=== PATIENT | male | born 1965 | race Caucasian/White ===

== ENCOUNTER → 2017-07-07 | Outpatient (CLI) | payer BC ==
--- NOTE | 2017-07-07 17:10 | XR ---
EXAMINATION TYPE: XR knee complete RT DATE OF EXAM: 07/07/2017 COMPARISON: NONE HISTORY: Knee pain TECHNIQUE: Fell 2 months ago FINDINGS: 3 views were obtained and show no fracture nor dislocation. Joint spaces are normal. There is no sign of knee joint effusion. IMPRESSION: Negative right knee exam
== END | disposition home or self-care (01) ==
LOC: RADXRYALE 16:26
PROVIDERS: ATTEND Physician Assistant Medical
DX: M25.561 Pain in right knee (principal)

== ENCOUNTER 2017-07-18 09:49 | Emergency (ER) | payer BC ==
[2017-07-18 09:57] VITALS: BP 139/89; PULSE 62; RESP 18; TEMP 97.8
[2017-07-18] MEDS ORDERED: KETOROLAC 30 MG/ML 1 ML VIAL IM STA (10:13)
--- NOTE | 2017-07-18 10:18 | ED ---
Lower Extremity Injury HPI - General Chief Complaint: Extremity Injury, Lower Stated Complaint: Right Knee Time Seen by Provider: 07/18/17 09:59 Source: patient, RN notes reviewed, old records reviewed Mode of arrival: wheelchair Limitations: no limitations - History of Present Illness Initial Comments: 31-year-old male chief complaint of right knee pain for the past 2 months. Patient reports that he fell on his knee 2 months ago and since then has been having some pain within the medial aspect of the knee on the side. Patient reports that he has difficult time fully extending it. He reports the pain has been getting progressively worse. He size primary care provider admitted actually for a week ago. He reports that those were reviewed to be normal. He states that overtime work it seems to be increasingly painful. Denies any numbness or tingling down the leg, denies any severe swelling over the leg as well. Denies any recent fever or chills. - Related Data Home Medications Medication Instructions Recorded Confirmed Citalopram Hydrobromide [CeleXA] 20 mg PO DAILY 05/02/14 05/02/14 Hydrocodone/Acetaminophen [Tangier 1 each PO Q6H PRN 05/02/14 05/02/14 10-325] Metoprolol Tartrate [Lopressor] 50 mg PO DAILY 05/02/14 05/02/14 Orphenadrine [Norflex] 100 mg PO Q12H 05/02/14 05/02/14 Pravastatin Sodium [Pravachol] 40 mg PO DAILY 05/02/14 05/02/14 amLODIPine BESYLATE [Norvasc] 5 mg PO DAILY 05/02/14 05/02/14 clonazePAM [KlonoPIN] 0.5 mg PO BID 05/02/14 05/02/14 Previous Rx's Medication Instructions Recorded Meloxicam 7.5 mg PO DAILY #15 tablet 07/18/17 Allergies Allergy/AdvReac Type Severity Reaction Status Date / Time carisoprodol [From Soma] Allergy Unknown Verified 05/02/14 11:41 Review of Systems ROS Statement: Those systems with pertinent positive or pertinent negative responses have been documented in the HPI. ROS Other: All systems not noted in ROS Statement are negative. Past Medical History Past Medical History: Hyperlipidemia, Hypertension Additional Past Medical History / Comment(s): BROKEN HEART SYNDROME History of Any Multi-Drug Resistant Organisms: None Reported Additional Past Surgical History / Comment(s): SHOULDER SURGERY PILONIDAL CYST REMOVAL Past Psychological History: No Psychological Hx Reported Smoking Status: Never smoker Past Alcohol Use History: None Reported Past Drug Use History: None Reported General Exam - General Exam Comments Initial Comments: This is a 51-year-old male. No acute distress. Limitations: no limitations General appearance: alert, in no apparent distress Head exam: Present: atraumatic, normocephalic, normal inspection Eye exam: Present: normal appearance, PERRL, EOMI. Absent: scleral icterus, conjunctival injection, periorbital swelling ENT exam: Present: normal exam, mucous membranes moist Neck exam: Present: normal inspection. Absent: tenderness, meningismus, lymphadenopathy Respiratory exam: Present: normal lung sounds bilaterally. Absent: respiratory distress, wheezes, rales, rhonchi, stridor Cardiovascular Exam: Present: regular rate, normal rhythm, normal heart sounds. Absent: systolic murmur, diastolic murmur, rubs, gallop, clicks GI/Abdominal exam: Present: soft, normal bowel sounds. Absent: distended, tenderness, guarding, rebound, rigid Right Knee exam: Present: normal inspection, full ROM, tenderness (Patient has some tenderness to palpation over the medial meniscus.), pain/laxity with valgus ( is some pain and laxity with valgus strain.). Absent: ecchymosis, deformity, crepitus, dislocation, erythema, effusion Lower Leg exam: Present: normal inspection, full ROM Ankle exam: Present: normal inspection, full ROM Foot/Toe exam: Present: normal inspection, full ROM Neurovascular tendon exam: Present: no vascular compromise Gait: observed and normal Back exam: Present: normal inspection Neurological exam: Present: alert, oriented X3, CN II-XII intact Psychiatric exam: Present: normal affect, normal mood Skin exam: Present: warm, dry, intact, normal color. Absent: rash Course Vital Signs 07/18/17 09:54 Temperature 97.8 F Pulse Rate 62 Respiratory 18 Rate Blood Pressure 139/89 O2 Sat by Pulse 98 Oximetry Medical Decision Making - Medical Decision Making 51-year-old male chief complaint of chronic right knee pain for the past 2 months. He reports it started after a fall. He recently had x-rays by his primary which were negative. He is able to bear weight on it but comes progressively painful. Patient denies any recent fever or chills. Patient is somewhat tender to palpation over the medial collateral ligament, medial meniscus. Patient does have some laxity with valgus strain. Discussed that he is able to barely not concerned for any fracture, he did have x-rays a week ago. Patient agrees. Patient is surgically for a shot for pain. Patient is given IM Toradol, discussed that I will write the patient for meloxicam and given an Bhupinder wrap. Discussed that needs to follow-up with his quality assurance specialist for further imaging studies such as an MRI. Patient agrees to plan will comply. Advised to rest, ice and elevate extremity. Return parameters were discussed. Disposition Clinical Impression: Injury of meniscus of right knee, Knee MCL sprain Disposition: HOME SELF-CARE Condition: Good Instructions: Meniscus Tear (ED) Additional Instructions: Rest rest, ice, and elevate extremity. Follow-up with orthopedic physician. Take the anti-inflammatory medicine anterior prescribed pain medicine as directed. Patient needs to wear a compression wrap around the knee. Return to the emergency department if any alarming signs or symptoms occur. Prescriptions: Meloxicam 7.5 mg PO DAILY #15 tablet Referrals: Mario Wallace DO [Primary Care Provider] - 1-2 days Mario Hummel DO [Doctor of Osteopathic Medicine] - 1-2 days Time of Disposition: 10:18
== END 2017-07-18 10:32 | disposition home or self-care (01) ==
LOC: EC 09:49
DX: S83.411A Sprain of medial collateral ligament of right knee, initial encounter (principal); E78.5 Hyperlipidemia, unspecified; I10 Essential (primary) hypertension; Z79.899 Other long term (current) drug therapy; Z88.8 Allergy status to other drugs, medicaments and biological substances; W19.XXXD Unspecified fall, subsequent encounter
CPT/HCPCS: 99283; 96372; J1885

== ENCOUNTER → 2017-07-21 | Outpatient (CLI) | payer BC ==
--- NOTE | 2017-07-22 18:14 | ECHOF ---
Referral Reason:Edema R60.9, I10 Essential hypertension MEASUREMENTS -------- HEIGHT: 177.8 cm WEIGHT: 102.1 kg BP: 141/88 RVIDd: 4.0 cm (< 3.3) IVSd: 1.5 cm (0.6 - 1.1) LVIDd: 4.6 cm (3.9 - 5.3) LVPWd: 1.4 cm (0.6 - 1.1) EDV(Teich): 98 ml IVSs: 1.5 cm LVIDs: 3.2 cm LVPWs: 1.5 cm %IVS Thck: 4 % ESV(Teich): 42 ml EF(Teich): 57 % %FS: 30 % SV(Teich): 56 ml LALs A4C: 5.2 cm LAAs A4C: 14.4 cm LAESV A-L A4C: 33 ml LAESV MOD A4C: 28 ml LALs A2C: 4.9 cm LAAs A2C: 15.2 cm LAESV A-L A2C: 40 ml LAESV MOD A2C: 38 ml LAESV(A-L): 38 ml LAESV Index (A-L): 17.07 ml/m Ao Diam: 3.1 cm (2.0 - 3.7) AV Cusp: 2.0 cm (1.5 - 2.6) LA Diam: 4.2 cm (2.7 - 3.8) MV EXCURSION: 19.913 mm (> 18.000) MV EF SLOPE: 129 mm/s (70 - 150) EPSS: 0.5 cm MV E Justin: 0.78 m/s MV DecT: 249 ms MV Dec Baker: 3.1 m/s MV A Justin: 0.79 m/s MV E/A Ratio: 0.98 MV PHT: 72 ms E/E': 10.94 E': 0.07 m/s AV Vmax: 1.43 m/s AV maxP.22 mmHg TR Vmax: 2.16 m/s TR maxP.74 mmHg RAP: 5.00 mmHg RVSP: 23.74 mmHg FINDINGS -------- Sinus rhythm. This was a technically adequate study. There is mild concentric left ventricular hypertrophy. Overall left ventricular systolic function is normal with, an EF between 55 - 60 %. The right ventricle is mildly enlarged. Normal LA size by volume 22+/-6 ml/m2. RA appears enlarged. The aortic valve is trileaflet, and appears structurally normal. No aortic stenosis or regurgitation. The mitral valve leaflets are mildly thickened. There is trace mitral regurgitation. Trace tricuspid regurgitation present. There is no evidence of pulmonary hypertension. The right ventricular systolic pressure, as measured by Doppler, is 23.74mmHg. The pulmonic valve is normal. The aortic root size is normal. Normal inferior vena cava with normal inspiratory collapse consistent with estimated right atrial pressure of 5 mmHg. The pericardium is normal. There is no pericardial effusion. CONCLUSIONS -------- 1. Sinus rhythm. 2. There is trace mitral regurgitation. 3. Trace tricuspid regurgitation present. 4. There is no evidence of pulmonary hypertension. 5. The right ventricular systolic pressure, as measured by Doppler, is 23.74mmHg. 6. The aortic root size is normal. 7. There is no pericardial effusion. 8. This was a technically adequate study. 9. There is mild concentric left ventricular hypertrophy. 10. Overall left ventricular systolic function is normal with, an EF between 55 - 60 %. 11. The right ventricle is mildly enlarged. 12. Normal LA size by volume 22+/-6 ml/m2. 13. RA appears enlarged. 14. The aortic valve is trileaflet, and appears structurally normal. No aortic stenosis or regurgitation. 15. The mitral valve leaflets are mildly thickened. WELL TESTER: Romeo Torres RDCS
== END | disposition home or self-care (01) ==
LOC: RADECHMAIN 16:35
PROVIDERS: ATTEND Family Medicine
DX: I08.1 Rheumatic disorders of both mitral and tricuspid valves (principal); I10 Essential (primary) hypertension
CPT/HCPCS: 93306

== ENCOUNTER → 2018-07-27 | Outpatient (CLI) | payer BC ==
--- NOTE | 2018-07-27 17:09 | XR ---
EXAMINATION TYPE: XR chest 2V DATE OF EXAM: 07/27/2018 COMPARISON: Prior chest 05/02/2014 HISTORY: Shortness of breath TECHNIQUE: Frontal and lateral views of the chest are obtained. FINDINGS: There is no focal air space opacity, pleural effusion, or pneumothorax seen. The cardiac silhouette size is within normal limits. Prominent lung volume may be indicative of underlying COPD. The osseous structures are intact. IMPRESSION: No acute cardiopulmonary process.
== END | disposition home or self-care (01) ==
LOC: RADXRYALE 15:38
PROVIDERS: ATTEND Family Medicine
DX: R06.02 Shortness of breath (principal)
CPT/HCPCS: 71046

== ENCOUNTER → 2018-10-04 | Outpatient (CLI) | payer BC ==
--- NOTE | 2018-10-04 22:28 | MR ---
EXAMINATION TYPE: MR knee LT wo con DATE OF EXAM: 10/04/2018 COMPARISON: None HISTORY: Left knee pain gotten worse over time TECHNIQUE: Multiplanar, multisequence imaging of the left knee is performed without IV contrast. FINDINGS: MEDIAL MENISCUS: Posterior horn of the medial meniscus shows linear increased signal extending to the articular surface LATERAL MENISCUS: There is some linear increased signal within the body of the meniscus, question jerzy e linear increased signal along the anterior horn extending toward the articular surface CRUCIATE LIGAMENTS: The anterior and posterior cruciate ligaments are intact and unremarkable. COLLATERAL LIGAMENTS: The medial collateral ligament and lateral collateral ligament complex are inta ct and unremarkable. EXTENSOR MECHANISM: Visualized quadriceps and patellar tendons are intact. EFFUSION: Suprapatellar joint effusion is present POPLITEAL CYST: No popliteal/jackson cyst. TRICOMPARTMENT SPACES: Reduced in the medial compartment CARTILAGE: Grade IV chondromalacia present in the medial compartment BONE MARROW SIGNAL: Subchondral marrow signal change present in the medial femoral condyle OTHER: Marginal spurring present in the medial compartment. Subcutaneous fat shows edema, there are some metallic susceptibility artifacts present anteriorly and medially. IMPRESSION: Osteoarthritis. Tear of the medial meniscus as described.
== END ==
LOC: RADMRIMAIN 17:46
PROVIDERS: ATTEND Physician Assistant Medical
DX: S83.242A Other tear of medial meniscus, current injury, left knee, initial encounter (principal); M17.12 Unilateral primary osteoarthritis, left knee

== ENCOUNTER 2019-06-14 06:09 | Inpatient (IN) | payer BC ==
[2019-06-14] MEDS ORDERED: ASPIRIN 81 MG PO STA (06:19)
[2019-06-14] MEDS ORDERED: NITROGLYCERIN SL TABS 0.4 MG TAB SUBLINGUAL STA (06:34)
--- NOTE | 2019-06-14 06:40 | ED ---
Chest Pain HPI - General Source: patient, RN notes reviewed Mode of arrival: ambulatory Limitations: no limitations <Mario Mo - Last Filed: 06/14/19 07:58> <Dinh Koroma - Last Filed: 06/14/19 08:07> - General Chief Complaint: Chest Pain Stated Complaint: Chest Pain Time Seen by Provider: 06/14/19 06:18 - History of Present Illness Initial Comments: 53-year-old male presents emergency Department with chief complaint of chest pain. Patient states the pain started shortly after he woke up this morning. P atient he normally wakes up around 2:30 AM to go to work. Patient states it's right-sided anterior chest pain that radiated into his left arm.. Patient states that the pain is still present he does not take a daily aspirin. He does have a history of hypertension hyperlipidemia. Patient states that he had broken heart syndrome years ago, cannot remember the year but states is over 5 years ago in which she had a heart cath in which that was clean at that time. He has had no recent stresses or recent heart cath otherwise. Patient states she does have a large amount of stressors currently. Patient states nothing really makes the pain feel better or worse he did have some shortness of breath and lightheadedness he denies being dizzy. Denies any abdominal pain, back pain and usual. He states his chronic back issues. (Mario Mo) - Related Data Home Medications Medication Instructions Recorded Confirmed amLODIPine BESYLATE [Norvasc] 5 mg PO DAILY 05/02/14 06/14/19 Metoprolol Succinate (ER) [Toprol 100 mg PO DAILY 06/14/19 06/14/19 Xl] Milk Thistle 150 mg PO DAILY 06/14/19 06/14/19 Morphine Sulfate [Ms Contin] 15 mg PO DAILY 06/14/19 06/14/19 Multivitamins, Thera [Multivitamin 1 tab PO DAILY 06/14/19 06/14/19 (formulary)] [place]-3 Fatty Acids/Fish Oil [Fish 1 cap PO DAILY 06/14/19 06/14/19 Oil 1,000 mg Softgel] Vitamin B (Unknow Otc) 1 tab PO DAILY 06/14/19 06/14/19 Allergies Allergy/AdvReac Type Severity Reaction Status Date / Time carisoprodol [From Soma] Allergy Unknown Verified 06/14/19 07:46 Review of Systems ROS Other: All systems not noted in ROS Statement are negative. <Mario Mo - Last Filed: 06/14/19 07:58> ROS Other: All systems not noted in ROS Statement are negative. <Dinh Koroma - Last Filed: 06/14/19 08:07> ROS Statement: Those systems with pertinent positive or pertinent negative responses have been documented in the HPI. EKG Findings - EKG Comments: EKG Findings:: EKG performed at 6:30 normal sinus rhythm right bundle rate of 72, AL 144 QRS 134 QT status QTC 4:30 04/26/[address] changes in V2 and V3 <Mario Mo - Last Filed: 06/14/19 07:58> Past Medical History Past Medical History: Hyperlipidemia, Hypertension Additional Past Medical History / Comment(s): BROKEN HEART SYNDROME, torn meniscus in left knee, History of Any Multi-Drug Resistant Organisms: None Reported Additional Past Surgical History / Comment(s): SHOULDER SURGERY, PILONIDAL CYST REMOVAL, nerve removed from left foot, Past Psychological History: No Psychological Hx Reported Smoking Status: Former smoker Past Alcohol Use History: Rare Past Drug Use History: None Reported <Mario Mo - Last Filed: 06/14/19 07:58> General Exam Limitations: no limitations General appearance: alert, in no apparent distress Head exam: Present: atraumatic, normocephalic, normal inspection Eye exam: Present: normal appearance, PERRL, EOMI. Absent: scleral icterus, conjunctival injection, periorbital swelling ENT exam: Present: normal exam, normal oropharynx, mucous membranes moist, TM's normal bilaterally Neck exam: Present: normal inspection, full ROM. Absent: tenderness, meningismus, lymphadenopathy Respiratory exam: Present: normal lung sounds bilaterally. Absent: respiratory distress, wheezes, rales, rhonchi, stridor Cardiovascular Exam: Present: regular rate, normal rhythm, normal heart sounds. Absent: systolic murmur, diastolic murmur, rubs, gallop, clicks GI/Abdominal exam: Present: soft, normal bowel sounds. Absent: distended, tenderness, guarding, rebound, rigid Neurological exam: Present: alert, oriented X3, CN II-XII intact Psychiatric exam: Present: anxious Skin exam: Present: warm, dry, intact, normal color. Absent: rash <Mario Mo - Last Filed: 06/14/19 07:58> Course <Dinh Koroma - Last Filed: 06/14/19 08:07> Vital Signs 06/14/19 06/14/19 06/14/19 06:13 07:14 07:40 Temperature 98.0 F Pulse Rate 75 60 70 Respiratory 17 18 Rate Blood Pressure 152/95 111/71 130/92 O2 Sat by Pulse 98 99 98 Oximetry - Reevaluation(s) Reevaluation #1: 06/14/19 08:07 PA supervision: I proceeded [id number] evaluation the patient did discuss findings with him I did also discuss the findings with Dr. acevedo patient will be admitted with cardiology consultation. (Dinh Koroma) Chest Pain MDM <Mario Mo - Last Filed: 06/14/19 07:58> - MDM 53-year-old male presents emergency Department chief complaint chest pain. Patient had initial relief with nitro. Patient does have a history of ta kotsubo. EKG shows evidence of right bundle, nonspecific changes. Patient did have some recurrence of pain. Patient will be admitted for an cardiology evaluation. (Mario Mo) Disposition <Mario Mo - Last Filed: 06/14/19 07:58> <Dinh Koroma - Last Filed: 06/14/19 08:07> Clinical Impression: Chest pain Disposition: ADMITTED IP TO THIS HOSP Condition: Fair Referrals: Mario Wallace DO [Primary Care Provider] - 1-2 days
[2019-06-14 06:56] LABS: Basophils % (A) 0 %; Eosinophils # (A) 0.1 k/uL (0-0.7); Eosinophils % (A) 2 %; HCT 44.3 % (39.0-53.0); HGB 14.8 gm/dL (13.0-17.5); Lymphocytes # (A) 1.9 k/uL (1.0-4.8); Lymphocytes % (A) 21 %; MCH 29.6 pg (25.0-35.0); MCHC 33.5 g/dL (31.0-37.0); MCV 88.3 fL (80.0-100.0); Mean Platelet Volume 6.3; Monocytes # (A) 0.5 k/uL (0-1.0); Monocytes % (A) 6 %; Neutrophils # (A) 6.1 k/uL (1.3-7.7); Neutrophils % (A) 69 %; Platelet Count 351 k/uL (150-450); RBC 5.01 m/uL (4.30-5.90); RDW 13.3 % (11.5-15.5); WBC 8.8 k/uL (3.8-10.6)
[2019-06-14 07:00] LABS: ALT 61 U/L (21-72); AST 26 U/L (17-59); African American GFR (CKD) >90 (>60 ml/min/1.73 sqM); Albumin 4.9 g/dL (3.5-5.0); Alkaline Phosphatase 75 U/L (38-126); Anion Gap 9 mmol/L; Blood Urea Nitrogen 12 mg/dL (9-20); Calcium 9.8 mg/dL (8.4-10.2); Carbon Dioxide 29 mmol/L (22-30); Chloride 100 mmol/L (98-107); Glucose 111 mg/dL (74-99); Magnesium 2.4 mg/dL (1.6-2.3); Potassium 4.5 mmol/L (3.5-5.1); Sodium 138 mmol/L (137-145); Total Bilirubin 0.7 mg/dL (0.2-1.3); Total Protein 7.8 g/dL (6.3-8.2)
[2019-06-14 07:10] LABS: INR 0.9 (<1.2); Partial Thromboplastin Time 23.4 sec (22.0-30.0); Prothrombin Time 9.8 sec (9.0-12.0)
--- NOTE | 2019-06-14 07:23 | XR ---
EXAM: XR Chest, 2 Views CLINICAL HISTORY: ITS.REASON XR Reason: Chest Pain TECHNIQUE: Frontal and lateral views of the chest. COMPARISON: 07/27/18 FINDINGS: Lungs: No focal consolidation. The pulmonary vasculature demonstrates no significant radiographic abnormality. Pleural space: No pleural effusion. No pneumothorax. Heart: Unremarkable. No cardiomegaly. Mediastinum: The mediastinal contours are unremarkable. The trachea is midline. Bones/joints: Unremarkable. IMPRESSION: No focal consolidation or acute cardiopulmonary process identified.
[2019-06-14] MEDS ORDERED: NITROGLYCERIN OINT 1 INCH/GM PACKET TOPICAL STA (07:47)
[2019-06-14] MEDS ORDERED: HEPARIN SODIUM,PORCINE 5,000 UNIT/ML 1 ML VIAL IV ONE (08:00)
[2019-06-14] MEDS ORDERED: HEPARIN SOD,PORK IN 0.45% NACL 25,000 UNIT in 0.45% NACL 1 250ML.BAG IV SCH (08:00)
--- NOTE | 2019-06-14 13:22 | ECHOF ---
Referral Reason:chest pain MEASUREMENTS -------- HEIGHT: 177.8 cm WEIGHT: 111.1 kg BP: 130/92 RVIDd: 4.2 cm (< 3.3) IVSd: 1.6 cm (0.6 - 1.1) LVIDd: 5.0 cm (3.9 - 5.3) LVPWd: 1.1 cm (0.6 - 1.1) IVSs: 2.0 cm LVIDs: 3.2 cm LVPWs: 1.7 cm LA Diam: 4.3 cm (2.7 - 3.8) Ao Diam: 3.8 cm (2.0 - 3.7) AV Cusp: 2.0 cm (1.5 - 2.6) LA Diam: 3.7 cm (2.7 - 3.8) MV EXCURSION: 18.069 mm (> 18.000) MV EF SLOPE: 86 mm/s (70 - 150) EPSS: 0.4 cm MV E Justin: 0.61 m/s MV DecT: 320 ms MV A Justin: 0.67 m/s MV E/A Ratio: 0.92 RAP: 5.00 mmHg RVSP: 23.57 mmHg FINDINGS -------- Sinus rhythm. This was a technically good study. LV size, wall thickness and systolic function are normal, with an EF greater than 55%. There is nor mal global left ventricular contractility. The right ventricle is normal in size and function. The left atrium is mildly dilated. The right atrium is normal in size. Interatrial and interventricular septum intact. The aortic valve is trileaflet, and appears structurally normal. No aortic stenosis or regurgitation. There is no evidence of aortic regurgitation. Normal appearing mitral valve. There is trace to mild mitral regurgitation. The tricuspid valve appears structurally normal. Trace tricuspid regurgitation present. There is no evidence of pulmonary hypertension. The right ventricular systolic pressure, as measured by Dopp ler, is 23.57mmHg. Pulmonic valve appears structurally normal. There is no pulmonic regurgitation present. The aortic root, ascending aorta and aortic arch are normal. Normal inferior vena cava with normal inspiratory collapse consistent with estimated right atrial pre ssure of 5 mmHg. The pericardium is normal. CONCLUSIONS -------- 1. Sinus rhythm. 2. This was a technically good study. 3. LV size, wall thickness and systolic function are normal, with an EF greater than 55%. 4. There is normal global left ventricular contractility. 5. The right ventricle is normal in size and function. 6. The left atrium is mildly dilated. 7. The right atrium is normal in size. 8. Interatrial and interventricular septum intact. 9. The aortic valve is trileaflet, and appears structurally normal. No aortic stenosis or regurgitati on. 10. There is no evidence of aortic regurgitation. 11. Normal appearing mitral valve. 12. There is trace to mild mitral regurgitation. 13. The tricuspid valve appears structurally normal. 14. Trace tricuspid regurgitation present. 15. There is no evidence of pulmonary hypertension. 16. The right ventricular systolic pressure, as measured by Doppler, is 23.57mmHg. 17. Pulmonic valve appears structurally normal. 18. There is no pulmonic regurgitation present. 19. The aortic root, ascending aorta and aortic arch are normal. 20. Normal inferior vena cava with normal inspiratory collapse consistent with estimated right atrial pressure of 5 mmHg. 21. The pericardium is normal. FAST FOOD MANAGER: Jean Paul Dong RDCS
[2019-06-14] MEDS ORDERED: amLODIPine 5 MG TAB PO ONE (14:40)
[2019-06-14] MEDS ORDERED: ALPRAZolam 0.25 MG TAB PO STA (14:42)
--- NOTE | 2019-06-14 14:43 | P.CRDCN ---
History of Present Illness History of present illness: This is a pleasant 53-year-old male past medical history significant for stress cardiomyopathy, hypertension and anxiety. He states approximately 7 years ago he presented to the hospital with chest discomfort and abnormal troponin and underwent cardiac catheterization revealing normal coronary arteries with evidence of takotsubo. Since that time his heart muscle has improved. Last evening he went to bed feeling in his normal state of health. He woke up this morning around 2:30 in the morning got ready for work and was driving to work he started feeling a pressure sensation in the left upper anterior chest wall radiation to the left axilla and intermittent bouts of sharp discomfort shooting through the left precordial region associated with mild shortness of breath woke up this morning feeling short of breath, chest pressure in the left upper anterior chest with radiation into the left axilla. Echocardiogram obtained reveals preserved LV systolic function with ejection fraction 55-60%. EKG reveals sinus mechanism with right bundle branch block pattern no acute ST or T wave abnormalities noted. Chest x-ray is negative for an acute cardiopulmonary process. Laboratory data reviewed, cardiac enzymes negative 2. Current cardiac medications include Toprol 100 mg daily and amlodipine 5 mg daily. At the time of my exam: CONSTITUTIONAL: Denies fever. Denies chills. EYES: Denies blurred vision. Denies vision changes. Denies eye pain. EARS, NOSE, MOUTH & THROAT: Denies headache. Denies sore throat. Denies ear pain. CARDIOVASCULAR: Denies chest pain. Denies shortness of breath. Denies orthopnea. Denies PND. Denies palpitations. RESPIRATORY: Denies cough. GASTROINTESTINAL: Denies abdominal pain. Denies diarrhea. Denies constipation. Denies nausea. Denies vomiting. MUSCULOSKELETAL: Denies myalgias. INTEGUMENTARY: Denies pruitis. Denies rash. NEUROLOGIC: Denies numbness. Denies tingling. Denies weakness. PSYCHIATRIC: Denies anxiety. Denies depression. ENDOCRINE: Denies fatigue. Denies weight change. Denies polydipsia. Denies polyurina. GENITOURINARY: Denies burning, hematuria or urgency with micturation. HEMATOLOGIC: Denies history of anemia. Denies bleeding. Blood pressure 130/92 heart rate 70 afebrile maintaining oxygen saturation on room air GENERAL: This is a 53-year-old male in no apparent distress at the time of my examination. HEENT: Head is atraumatic, normocephalic. Pupils are equal, round. Sclerae anicteric. Conjunctivae are clear. Mucous membranes of the mouth are moist. Neck is supple. There is no jugular venous distention. No carotid bruit is heard. LUNGS: Clear to auscultation no wheezes, rales or rhonchi. No chest wall tenderness is noted on palpation or with deep breathing. HEART: Regular rate and rhythm without murmurs, rubs or gallops. S1 and S2 heard. ABDOMEN: Soft, nontender. Bowel sounds are heard. No organomegaly noted. EXTREMITIES: Trace bilateral lower extremity pitting edema and no calf tenderness noted. VASCULAR: Radial and dorsalis pedis pulses palpated, no evidence of clubbing. NEUROLOGIC: Patient is awake, alert and oriented x3. ASSESSMENT Chest pain, atypical for angina. Hypertension History of stress cardiomyopathy Anxiety Lower extremity edema, possibly secondary to amlodipine PLAN Echocardiogram obtained and reviewed reveals preserved LV systolic function. Increase amlodipine to 10 mg daily. Resume on 100 mg daily. Check proBNP. If troponins are normal heparin infusion can be discontinued and we'll proceed with a Persantine stress test in the morning. Nothing by mouth after midnight. Further recommendations to follow based upon clinical course. Thank you kindly for this consultation. Nurse Practitioner note has been reviewed, I agree with a documented findings and plan of care. Patient was seen and examined. Past Medical History Past Medical History: Hyperlipidemia, Hypertension Additional Past Medical History / Comment(s): BROKEN HEART SYNDROME, torn meniscus in left knee, History of Any Multi-Drug Resistant Organisms: None Reported Additional Past Surgical History / Comment(s): SHOULDER SURGERY, PILONIDAL CYST REMOVAL, nerve removed from left foot, Past Psychological History: No Psychological Hx Reported Smoking Status: Former smoker Past Alcohol Use History: Rare Past Drug Use History: None Reported Medications and Allergies Home Medications Medication Instructions Recorded Confirmed Type amLODIPine BESYLATE [Norvasc] 5 mg PO DAILY 05/02/14 06/14/19 History Metoprolol Succinate (ER) [Toprol 100 mg PO DAILY 06/14/19 06/14/19 History Xl] Milk Thistle 150 mg PO DAILY 06/14/19 06/14/19 History Morphine Sulfate [Ms Contin] 15 mg PO DAILY 06/14/19 06/14/19 History Multivitamins, Thera [Multivitamin 1 tab PO DAILY 06/14/19 06/14/19 History (formulary)] [place]-3 Fatty Acids/Fish Oil [Fish 1 cap PO DAILY 06/14/19 06/14/19 History Oil 1,000 mg Softgel] Vitamin B (Unknow Otc) 1 tab PO DAILY 06/14/19 06/14/19 History Allergies Allergy/AdvReac Type Severity Reaction Status Date / Time carisoprodol [From [facility]] Allergy Unknown Verified 06/14/19 07:46 Physical Exam Vitals: Vital Signs Temp Pulse Resp BP Pulse Ox 06/14/19 11:30 53 L 131/86 97 06/14/19 11:20 60 131/86 97 06/14/19 11:10 59 L 131/86 98 06/14/19 11:00 64 124/77 96 06/14/19 10:00 67 127/82 97 06/14/19 09:00 68 158/101 06/14/19 08:50 62 158/101 97 06/14/19 08:00 63 130/92 98 06/14/19 07:40 70 130/92 98 06/14/19 07:14 60 18 111/71 99 06/14/19 06:13 98.0 F 75 17 152/95 98 Intake and Output 06/13/19 06/14/19 06/14/19 22:59 06:59 14:59 Other: Weight 111.13 kg Results 06/14/19 06:33 06/14/19 06:33 Cardiac Enzymes 06/14/19 06/14/19 06/14/19 Range/Units 06:33 06:33 11:32 AST 26 (17-59) U/L Troponin I <0.012 <0.012 (0.000-0.034) ng/mL Coagulation 06/14/19 Range/Units 06:33 PT 9.8 (9.0-12.0) sec APTT 23.4 (22.0-30.0) sec CBC 06/14/19 Range/Units 06:33 WBC 8.8 (3.8-10.6) k/uL RBC 5.01 (4.30-5.90) m/uL Hgb 14.8 (13.0-17.5) gm/dL Hct 44.3 (39.0-53.0) % Plt Count 351 (150-450) k/uL Comprehensive Metabolic Panel 06/14/19 Range/Units 06:33 Sodium 138 (137-145) mmol/L Potassium 4.5 (3.5-5.1) mmol/L Chloride 100 (98-107) mmol/L Carbon Dioxide 29 (22-30) mmol/L BUN 12 (9-20) mg/dL Creatinine 0.69 (0.66-1.25) mg/dL Glucose 111 H (74-99) mg/dL Calcium 9.8 (8.4-10.2) mg/dL AST 26 (17-59) U/L ALT 61 (21-72) U/L Alkaline Phosphatase 75 (38-126) U/L Total Protein 7.8 (6.3-8.2) g/dL Albumin 4.9 (3.5-5.0) g/dL Current Medications Generic Name Dose Route Start Last Admin Trade Name Freq PRN Reason Stop Dose Admin Aspirin 325 mg 06/15/19 09:00 Aspirin PO DAILY ISREAL Heparin Sodium/Sodium Chloride 250 mls @ 10.001 mls/hr 06/14/19 08:00 06/14/19 08:13 25,000 unit/ Sodium Chloride IV 8.999 units/kg/hr .Q24H ISREAL 10.001 mls/hr Administration Protocol 8.999 UNITS/KG/HR Intake and Output 06/13/19 06/14/19 06/14/19 22:59 06:59 14:59 Other: Weight 111.13 kg 06/14/19 06:33 06/14/19 06:33
[2019-06-14] MEDS: ALPRAZolam 0.25 MG TAB PO PRN (21:25)
[2019-06-15] MEDS ORDERED: AMINOPHYLLINE 500 MG/20 ML VIAL IV PRN (06:00)
[2019-06-15] MEDS ORDERED: CAFFEINE CITRATE 60 MG/3 ML VIAL IV PRN (06:00)
--- NOTE | 2019-06-15 06:54 | P.HPIM ---
History of Present Illness This is a pleasant 53 years old male with past medical history of hyperlipidemia, hypertension, chronic back pain and torn meniscus in his left knee for which he is on pain medication and follow-up with Dr. Smith me as his PCP and for pain management. Also patient gave history of broken heart syndrome "takotsubo" who years ago that looks like it is resolved per patient. Also patient says that he was under a lot of stress lately due to his work and driving more than an hour, and sickness of his with surgery and 2+ in her lung. He presents with feeling of chest pain and pressure on the left side in the left lateral chest, nonradiating of one-day duration, mainly his pressure sometimes sharp pain associated with some dyspnea but no nausea vomiting. Patient hemodynamically is stable, labs were unremarkable with 3 sets of negative troponin. Chest x-ray: No focal consolidation or acute process. Patient has been evaluated by platform material handler manager and he is going for stress test Review of Systems CONSTITUTIONAL: No fever, no malaise, no fatigue. HEENT: No recent visual problems or hearing problems. Denied any sore throat. CARDIOVASCULAR: No orthopnea, PND, no palpitations, no syncope. PULMONARY: No shortness of breath, no cough, no hemoptysis. GASTROINTESTINAL: No diarrhea, no nausea, no vomiting, no abdominal pain. Normoactive bowel sounds. NEUROLOGICAL: No headaches, no weakness, no numbness. HEMATOLOGICAL: Denies any bleeding or petechiae. GENITOURINARY: Denies any burning micturition, frequency, or urgency. MUSCULOSKELETAL/RHEUMATOLOGICAL: Denies any joint pain, swelling, or any muscle pain. ENDOCRINE: Denies any polyuria or polydipsia. Past Medical History Past Medical History: Hyperlipidemia, Hypertension Additional Past Medical History / Comment(s): BROKEN HEART SYNDROME, torn meniscus in left knee, History of Any Multi-Drug Resistant Organisms: None Reported Additional Past Surgical History / Comment(s): SHOULDER SURGERY, PILONIDAL CYST REMOVAL, nerve removed from left foot, Past Psychological History: No Psychological Hx Reported Smoking Status: Former smoker Past Alcohol Use History: Rare Past Drug Use History: None Reported Medications and Allergies Home Medications Medication Instructions Recorded Confirmed Type amLODIPine BESYLATE [Norvasc] 5 mg PO DAILY 05/02/14 06/14/19 History Metoprolol Succinate (ER) [Toprol 100 mg PO DAILY 06/14/19 06/14/19 History Xl] Milk Thistle 150 mg PO DAILY 06/14/19 06/14/19 History Morphine Sulfate [Ms Contin] 15 mg PO DAILY 06/14/19 06/14/19 History Multivitamins, Thera [Multivitamin 1 tab PO DAILY 06/14/19 06/14/19 History (formulary)] [place]-3 Fatty Acids/Fish Oil [Fish 1 cap PO DAILY 06/14/19 06/14/19 History Oil 1,000 mg Softgel] Vitamin B (Unknow Otc) 1 tab PO DAILY 06/14/19 06/14/19 History Allergies Allergy/AdvReac Type Severity Reaction Status Date / Time carisoprodol [From [facility]] Allergy Unknown Verified 06/14/19 07:46 Physical Exam Vitals: Vital Signs Temp Pulse Pulse Resp BP BP Pulse Ox 06/14/19 16:00 18 06/14/19 15:45 98.5 F 73 62 18 125/85 133/85 95 06/14/19 11:30 53 L 131/86 97 06/14/19 11:20 60 131/86 97 06/14/19 11:10 59 L 131/86 98 06/14/19 11:00 64 124/77 96 06/14/19 10:00 67 127/82 97 06/14/19 09:00 68 158/101 06/14/19 08:50 62 158/101 97 06/14/19 08:00 63 130/92 98 06/14/19 07:40 70 130/92 98 06/14/19 07:14 60 18 111/71 99 06/14/19 06:13 98.0 F 75 17 152/95 98 Intake and Output 06/14/19 06/14/19 06/14/19 06:59 14:59 22:59 Other: Voiding Method Toilet Weight 111.13 kg GENERAL: The patient is alert and oriented x3, not in any acute distress. Well developed, well nourished. HEENT: Pupils are round and equally reacting to light. EOMI. No scleral icterus. No conjunctival pallor. Normocephalic, atraumatic. No pharyngeal erythema. No thyromegaly. CARDIOVASCULAR: S1 and S2 present. No murmurs, rubs, or gallops. PULMONARY: Chest is clear to auscultation, no wheezing or crackles. ABDOMEN: Soft, nontender, nondistended, normoactive bowel sounds. No palpable organomegaly. MUSCULOSKELETAL: No joint swelling or deformity. EXTREMITIES: No cyanosis, clubbing, or pedal edema. NEUROLOGICAL: Gross neurological examination did not reveal any focal deficits. SKIN: No rashes. Results CBC & Chem 7: 06/14/19 06:33 06/14/19 06:33 Labs: Abnormal Lab Results - Last 24 Hours (Table) 06/14/19 Range/Units 06:33 Glucose 111 H (74-99) mg/dL Magnesium 2.4 H (1.6-2.3) mg/dL Thrombosis Risk Factor Assmnt - Choose All That Apply Each Factor Represents 1 point: Age 41-60 years Other Risk Factors: No Thrombosis Risk Factor Assessment Total Risk Factor Score: 1 Thrombosis Risk Factor Assessment Level: Low Risk Assessment and Plan Assessment: Chest pain, rule out coronary artery disease Hypertension Hyperlipidemia History of chronic back pain History of abdominal meniscus of his left knee Occasional leg swelling, with an active issue. Patient counseled that could be due to [facility]. Plan: This is a pleasant 53 years old male who presents with chest pain. Cardiology evaluated the patient and patient is going for stress test. Continue with aspirin and other blood pressure medication. Labs and medication were reviewed.. Continue same treatment. Continue with symptomatic treatment. Resume home medication. Monitor lytes and vitals. DVT and GI prophylaxis. Further recommendations of the clinical course of the patient DVT prophylaxis: Subcutaneous Lovenox
[2019-06-15] MEDS ORDERED: SODIUM CHLORIDE 0.9% IV ONE (07:00)
[2019-06-15] MEDS ORDERED: DIPYRIDAMOLE IV ONE (07:00)
[2019-06-15] MEDS: MORPHINE SULFATE ER 30 MG TABLET PO SCH ×2 (07:53→20:34)
[2019-06-15] MEDS: ALPRAZolam 0.25 MG TAB PO PRN (08:11)
[2019-06-15 08:36] LABS: Mean Platelet Volume 6.8; Platelet Count 257 k/uL (150-450)
[2019-06-15 08:47] LABS: Cholesterol 235 mg/dL (<200); HDL Cholesterol 44 mg/dL (40-60); LDL Cholesterol,Calculated 146 mg/dL (0-99); Triglycerides 225 mg/dL (<150)
[2019-06-15] MEDS: amLODIPine 10 MG TAB PO SCH (11:05)
[2019-06-15] MEDS: ASPIRIN 325 MG TAB PO SCH (11:06)
[2019-06-15] MEDS: ENOXAPARIN 40 MG/0.4 ML SYRINGE SQ SCH (11:06)
[2019-06-15] MEDS: METOPROLOL SUCCINATE (ER) 100 MG TAB.ER.24H PO SCH (11:06)
[2019-06-15] MEDS: ATORVASTATIN 40 MG TAB PO SCH (11:06)
--- NOTE | 2019-06-15 11:46 | EST ---
EXERCISE STRESS AGE: 53 SEX: M HT: 70" WT: 245 PROTOCOL: Persantine Cardiolite Stress Test HEART RATE REST: 61 BLOOD PRESSURE REST: 158/104 MAXIMUM HEART RATE ACHIEVED: 78 MAXIMUM BLOOD PRESSURE: 154/88 85% MPHR: 142 100% MPHR: 167 INDICATIONS: Chest pain. CLINICAL INFORMATION: Baseline EKG revealed normal sinus rhythm with right bundle branch block pattern and repolarization changes. With Persantine administration, heart rate changed from 61-78 beats per minute, blood pressure changed from 158/104 to 154/88. EKG was unchanged. Patient did not have any symptoms of angina. By EKG criteria, this is an inconclusive Persantine stress test because of resting EKG changes. The nuclear scan results which are more pertinent will be reported by the radiologist. SOFI / URIAH: [id number] /
--- NOTE | 2019-06-15 12:07 | NM ---
EXAMINATION TYPE: NM stress persantine cardiolit DATE OF EXAM: 06/15/2019 COMPARISON: NONE HISTORY: Chest pain TECHNIQUE: After the intravenous administration of 10.22 mCi Tc 99m Sestamibi - Cardiolite resting S PECT images acquired 45 minutes post injection. The patient received 64 mg Persantine, 24.5 mCi Tc 99m Sestamibi - Stress images obtained 30 minutes post injection FINDINGS: Review of stress and rest SPECT images demonstrates some mild decreased radio from physical uptake al brook the inferoseptal left ventricle on stress as compared to rest images extending towards the cardia c apex. Gated analysis shows normal wall motion with an estimated left ventricular ejection fraction of 49 %. IMPRESSION: Pathologically induced left ventricular myocardial ischemia.
--- NOTE | 2019-06-15 12:41 | P.PN ---
Subjective This is a pleasant 53 years old male with past medical history of hyperlipidemia, hypertension, chronic back pain and torn meniscus in his left knee for which he is on pain medication and follow-up with Dr. Smith me as his PCP and for pain management. Also patient gave history of broken heart syndrome "takotsubo" who years ago that looks like it is resolved per patient. Also patient says that he was under a lot of stress lately due to his work and driving more than an hour, and sickness of his with surgery and 2+ in her lung. He presents with feeling of chest pain and pressure on the left side in the left lateral chest, nonradiating of one-day duration, mainly his pressure sometimes sharp pain associated with some dyspnea but no nausea vomiting. Patient hemodynamically is stable, labs were unremarkable with 3 sets of neg ative troponin. Chest x-ray: No focal consolidation or acute process. Patient has been evaluated by mail officer and he is going for stress test 06/15/2019 Patient is awake, history of some pressure sensation in his chest with occasional sharp pains. His dyspnea is improved. D-dimer was checked and came back negative at 0.23, however patient stress test came back positive. He remains hemodynamically stable. Lipid profile showing mildly increased triglycerides at 2-5 and cholesterol 235, and LDL cholesterol also has increased at 146, 1 HDL cholesterol is 44. ProBNP is 47, and lipase at 75 Cartilage team R following the case. Patient might need further testing like cardiac cath CONSTITUTIONAL: No fever, no malaise, no fatigue. HEENT: No recent visual problems or hearing problems. Denied any sore throat. CARDIOVASCULAR: No orthopnea, PND, no palpitations, no syncope. PULMONARY: No shortness of breath, no cough, no hemoptysis. GASTROINTESTINAL: No diarrhea, no nausea, no vomiting, no abdominal pain. Normoactive bowel sounds. NEUROLOGICAL: No headaches, no weakness, no numbness. HEMATOLOGICAL: Denies any bleeding or petechiae. GENITOURINARY: Denies any burning micturition, frequency, or urgency. MUSCULOSKELETAL/RHEUMATOLOGICAL: Denies any joint pain, swelling, or any muscle pain. ENDOCRINE: Denies any polyuria or polydipsia. Active Medications Generic Name Dose Route Start Last Admin Trade Name Freq PRN Reason Stop Dose Admin Alprazolam 0.25 mg 06/14/19 21:21 06/15/19 08:11 Xanax PO 0.25 mg TID PRN Administration Anxiety Aminophylline 100 mg 06/15/19 06:00 Aminophylline IV ONCE PRN Patient Response Amlodipine Besylate 10 mg 06/15/19 09:00 06/15/19 11:05 Norvasc PO 10 mg DAILY ISREAL Administration Aspirin 325 mg 06/15/19 09:00 06/15/19 11:06 Aspirin PO 325 mg DAILY ISREAL Administration Atorvastatin Calcium 40 mg 06/15/19 09:00 06/15/19 11:06 Lipitor PO 40 mg DAILY ISREAL Administration Caffeine Citrate 60 mg 06/15/19 06:00 Cafcit Inj IV ONCE PRN Patient Response Enoxaparin Sodium 40 mg 06/15/19 09:00 06/15/19 11:06 Lovenox SQ 40 mg DAILY ISREAL Administration Metoprolol Succinate 100 mg 06/15/19 09:00 06/15/19 11:06 Toprol Xl PO 100 mg DAILY ISREAL Administration Morphine Sulfate 30 mg 06/15/19 09:00 06/15/19 07:53 Ms Contin PO 30 mg Q12HR ISREAL Administration Objective - Vital Signs Vital signs: Vital Signs Temp 97.9 F 06/15/19 11:21 Pulse 66 06/15/19 12:00 Resp 18 06/15/19 12:00 BP 163/96 06/15/19 11:21 Pulse Ox 96 06/15/19 11:21 Intake & Output 06/14/19 06/15/19 06/15/19 18:59 06:59 18:59 Other: Voiding Method Toilet Toilet Toilet # Voids 1 - Exam GENERAL: The patient is alert and oriented x3, not in any acute distress. Well developed, well nourished. HEENT: Pupils are round and equally reacting to light. EOMI. No scleral icterus. No conjunctival pallor. Normocephalic, atraumatic. No pharyngeal erythema. No thyromegaly. CARDIOVASCULAR: S1 and S2 present. No murmurs, rubs, or gallops. PULMONARY: Chest is clear to auscultation, no wheezing or crackles. ABDOMEN: Soft, nontender, nondistended, normoactive bowel sounds. No palpable organomegaly. MUSCULOSKELETAL: No joint swelling or deformity. EXTREMITIES: No cyanosis, clubbing, or pedal edema. NEUROLOGICAL: Gross neurological examination did not reveal any focal deficits. SKIN: No rashes. - Labs CBC & Chem 7: 06/15/19 07:55 06/14/19 06:33 Labs: Abnormal Lab Results - Last 24 Hours (Table) 06/15/19 Range/Units 07:55 Triglycerides 225 H (<150) mg/dL Cholesterol 235 H (<200) mg/dL LDL Cholesterol, Calc 146 H (0-99) mg/dL Assessment and Plan Assessment: Chest pain, with positive stress test. Hypertension Hyperlipidemia History of chronic back pain History of abdominal meniscus of his left knee Occasional leg swelling, with an active issue. Patient counseled that could be due to Norvasc. Plan: This is a pleasant 53 years old male who presents with chest pain. Cardiology evaluated the patient and patient is going for stress test which came back positive and patient might need further evaluation like cardiac cath. Continue with aspirin and other blood pressure medication. Labs and medication were reviewed.. Continue same treatment. Continue with symptomatic treatment. Resume home medication. Monitor lytes and vitals. DVT and GI prophylaxis. Further recommendations of the clinical course of the patient DVT prophylaxis: Subcutaneous Lovenox
[2019-06-15] MEDS ORDERED: ATORVASTATIN 80 MG TAB PO STA (12:44)
[2019-06-15] MEDS ORDERED: SODIUM CHLORIDE 0.9% 1,000 ML in EMPTY BAG 1 BAG IV ONE (12:44)
--- NOTE | 2019-06-15 13:51 | P.PN ---
Subjective This is a pleasant 53-year-old male past medical history significant for stress cardiomyopathy, hypertension and anxiety. He states approximately 7 years ago he presented to the hospital with chest discomfort and abnormal troponin and underwent cardiac catheterization revealing normal coronary arteries with evidence of takotsubo. Since that time his heart muscle has improved. Last evening he went to bed feeling in his normal state of health. He woke up this morning around 2:30 in the morning got ready for work and was driving to work he started feeling a pressure sensation in the left upper anterior chest wall radiation to the left axilla and intermittent bouts of sharp discomfort shooting through the left precordial region associated with mild shortness of breath woke up this morning feeling short of breath, chest pressure in the left upper anterior chest with radiation into the left axilla. Echocardiogram obtained rev ls preserved LV systolic function with ejection fraction 55-60%. 06/15/2019 Pt is seen and examined resting comfortably in bed with at the bedside. He underwent persantine stress test this morning revealing decreased uptake along the interoseptal LV on stress compared to rest with EF 49%. He denies any further symptoms of chest pain or shortness of breath. Laboratory data reviewed, cardiac enzymes negative 3, d-dimer 0.23, LDL 146, proBNP 47. Blood pressure 163/96 heart rate 66 afebrile and maintaining oxygen saturation on room air. GENERAL: This is a 53-year-old male in no apparent distress at the time of my examination. HEENT: Head is atraumatic, normocephalic. Pupils are equal, round. Sclerae anicteric. Conjunctivae are clear. Mucous membranes of the mouth are moist. Neck is supple. There is no jugular venous distention. No carotid bruit is heard. LUNGS: Clear to auscultation no wheezes, rales or rhonchi. No chest wall tenderness is noted on palpation or with deep breathing. HEART: Regular rate and rhythm without murmurs, rubs or gallops. S1 and S2 heard. EXTREMITIES: Trace bilateral lower extremity pitting edema and no calf tenderness noted. ASSESSMENT Chest pain, atypical for angina. Hypertension History of stress cardiomyopathy Anxiety Lower extremity edema, possibly secondary to amlodipine PLAN Recommend proceeding with cardiac catheterization to assess for coronary artery disease. I have discussed the risks, benefits and alternative therapies for the above-mentioned procedure and for both sedation/analgesia as well as necessary blood product administration, if indicated, as they pertain to this patient. The patient has indicated understanding and acceptance of the risks and procedures discussed. Questions have been answered appropriately and he is agreeable to move forward with the above stated procedure. NPO after midnight tonight for case at 0730 tomorrow morning. Further recommendations to follow based on catheterization findings. Nurse Practitioner note has been reviewed, I agree with a documented findings and plan of care. Patient was seen and examined. Objective - Vital Signs Vital signs: Vital Signs Temp 97.9 F 06/15/19 11:21 Pulse 66 06/15/19 12:00 Resp 18 06/15/19 12:00 BP 163/96 06/15/19 11:21 Pulse Ox 96 06/15/19 11:21 Intake & Output 06/14/19 06/15/19 06/15/19 18:59 06:59 18:59 Other: Voiding Method Toilet Toilet Toilet # Voids 1 - Labs CBC & Chem 7: 06/15/19 07:55 06/14/19 06:33 Labs: Abnormal Lab Results - Last 24 Hours (Table) 06/15/19 Range/Units 07:55 Triglycerides 225 H (<150) mg/dL Cholesterol 235 H (<200) mg/dL LDL Cholesterol, Calc 146 H (0-99) mg/dL
[2019-06-15] MEDS: ALPRAZolam 0.5 MG TAB PO PRN ×2 (15:13→20:36)
[2019-06-16] MEDS: ATORVASTATIN 40 MG TAB PO SCH (05:16)
[2019-06-16] MEDS: amLODIPine 10 MG TAB PO SCH (05:16)
[2019-06-16] MEDS: ENOXAPARIN 40 MG/0.4 ML SYRINGE SQ SCH (05:16)
[2019-06-16] MEDS: ASPIRIN 325 MG TAB PO SCH (05:16)
[2019-06-16] MEDS: MORPHINE SULFATE ER 30 MG TABLET PO SCH (05:16)
[2019-06-16] MEDS: METOPROLOL SUCCINATE (ER) 100 MG TAB.ER.24H PO SCH (05:31)
[2019-06-16] MEDS ORDERED: HEPARIN SODIUM 1,000 UN/ML (10ML VL) ONE (07:33)
[2019-06-16] MEDS ORDERED: VERAPAMIL 2.5 MG/ML 2 ML AMP ONE (07:33)
[2019-06-16] MEDS ORDERED: LIDOCAINE 1% INJ 10MG/ML (20 ML MDV) ONE (07:33)
[2019-06-16] MEDS ORDERED: SODIUM CHLORIDE 0.9% 1,000 ML IV ONE (07:45)
[2019-06-16] MEDS ORDERED: MIDAZOLAM (PF) 2 MG/2 ML VIAL IV ONE (07:48)
[2019-06-16] MEDS ORDERED: LIDOCAINE 1% INJ 10MG/ML (20 ML MDV) SQ ONE (07:51)
[2019-06-16] MEDS: VERAPAMIL SYRINGE (5 MG/10 ML) INTRAARTER ONE ×2 (07:52→08:04)
[2019-06-16] MEDS ORDERED: HEPARIN SODIUM 1,000 UN/ML (10ML VL) IV ONE (07:53)
[2019-06-16] MEDS ORDERED: IOPAMIDOL-370 100ML BTL INJ ONE (08:02)
[2019-06-16] MEDS ORDERED: SODIUM CHLORIDE 0.9% 1,000 ML IV SCH (08:30)
--- NOTE | 2019-06-16 08:40 | CC ---
CARDIAC CATHETERIZATION REPORT DATE OF SERVICE: 06/16/2019 PROCEDURE: Left heart catheterization and coronary angiography. PERFORMED BY: Dr. Lex Gaspar. Moderate conscious sedation time was 15 minutes. Patient was administered Versed. His oxygen saturation, hemodynamics and EKG were monitored closely. CLINICAL INFORMATION: Mr. Akash Arias is a 53-year-old gentleman with a significant amount of anxiety, hypertension, and hyperlipidemia. In 2012, he presented to the hospital with chest discomfort, had a Takotsubo type picture with open coronaries and anteroapical ballooning syndrome type picture. However, he has done well since then. He comes in this time with symptoms of chest pressure, tightness across the anterior chest with negative troponins. There was a significant amount of anxiety, but stress test revealed inferior wall reversible defect and therefore was advised cardiac catheterization after due discussion regarding risks, benefits, and options. PROCEDURE NOTE: Under local anesthesia and strict aseptic precautions, a 6-Azerbaijani introducer was placed in the right radial artery. Using an Ultimate 1 catheter I was able to cannulate the left coronary artery and get good angiograms. Using a JR4 catheter, I did selective coronary angiography of the right coronary artery and also checked the LV pressures. LV gram was not performed, but by echocardiogram, LV function was normal. Patient tolerated the procedure well. The sheath was taken out and TR band applied as per protocol and the saturation of the fingers of the right hand was about 95%. CARDIAC CATHETERIZATION FINDINGS: Left ventricular end-diastolic pressure was 8 mmHg without any gradient across the aortic valve. CORONARY ANGIOGRAPHY FINDINGS: LEFT MAIN CORONARY ARTERY: Short vessel. No significant disease. It immediately bifurcates into LAD and circumflex. LEFT ANTERIOR DESCENDING CORONARY ARTERY: Good caliber vessel extends along the anterior wall, gives off septal and diagonal branches, has no significant disease, has minor irregularities. It runs all the way towards the apex, supplying a sizable amount of myocardium. Minor irregularities were seen but no significant disease in LAD. LEFT POSTERIOR CIRCUMFLEX CORONARY ARTERY: Nondominant vessel. Single large obtuse marginal that runs laterally has minor irregularities, no significant disease. RIGHT CORONARY ARTERY: A very dominant vessel has no significant disease in the proximal mid or distal portions. Distally it bifurcates into a larger PDA a smaller PLV. No significant disease only minor irregularities noted. LEFT VENTRICULOGRAM: Left ventriculogram was not performed. FINAL IMPRESSION: This patient has a right dominant system. No significant disease. Normal filling pressures and no gradient across the aortic valve. His left ventricular function by echo was normal. RECOMMENDATION: I am recommending continued medical therapy with risk factor modification. No intervention is necessary. He will be discharged later on today and I will see him in the office in about a week. SOFI / PASCALEN: [id number] /
--- NOTE | 2019-06-16 11:47 | P.DS ---
Providers Date of admission: 06/15/19 13:03 Attending physician: Alonzo Nolasco MD Consults: 06/14/19 08:00 Consult Physician Urgent Consulting Provider: Marcell Denton Consult Reason/Comments: chest pain Do you want consulting provider notified?: Yes Primary care physician: Mario Wallace [facility] Course: Diagnoses: Chest pain/pressure, with negative cardiac cath and normal d-dimer. Mostly related to stress versus musculoskeletal Hypertension Hyperlipidemia Anxiety related to work and health. History of chronic back pain History of abdominal meniscus of his left knee Occasional leg swelling, not an active issue. Patient counseled that could be due to Norvasc. Hospital course: This is a pleasant 53 years old male with past medical history of hyperlipidemia, hypertension, chronic back pain and torn meniscus in his left knee for which he is on pain medication and follow-up with Dr. Wallace as his PCP and for pain management. Also patient gave history of broken heart syndrome "takotsubo" few years ago that looks like it is resolved per patient. Also patient says that he was under a lot of stress lately due to his work and driving more than an hour, and sickness of his with surgery and 2 clots in her lung. He presents with feeling of chest pain and pressure on the left side in the left lateral chest, of one-day duration, patient has been evaluated by prototype deicer assembler. He has positive stress test followed by cardiac cath which shows normal coronary arteries. I discussed the case with cardiology team and they cleared the patient for discharge. Patient will be discharged on aspirin and Lipitor Patient denies other symptoms like no dyspnea, no abdominal pain, no change in urine or bowel habits. No fever. Problems and management plan were discussed with the patient and he verbalized understanding and acceptance Patient was found stable and can be discharged home however he needs follow-up as an outpatient. Patient agrees with the appointments and their timing made for him with his PCP and prototype deicer assembler and states he will follow-up Gen: patient is a AAOx3, no distress CVS: S1-S2, RRR, no murmur Lungs: B/L CTA, no wheezing Abdomen: soft, no distention, no tenderness, positive bowel sounds Extremity: no leg edema or induration Time spent more than 35 minutes Patient Condition at Discharge: Fair Plan - Discharge Summary Discharge Rx Participant: No New Discharge Prescriptions: No Action amLODIPine BESYLATE [Norvasc] 5 mg PO DAILY Vitamin B (Unknow Otc) 1 tab PO DAILY Multivitamins, Thera [Multivitamin (formulary)] 1 tab PO DAILY Morphine Sulfate [Ms Contin] 15 mg PO DAILY Milk Thistle 150 mg PO DAILY Metoprolol Succinate (ER) [Toprol Xl] 100 mg PO DAILY Walcott-3 Fatty Acids/Fish Oil [Fish Oil 1,000 mg Softgel] 1 cap PO DAILY Discharge Medication List amLODIPine BESYLATE [Norvasc] 5 mg PO DAILY 05/02/14 [History] Metoprolol Succinate (ER) [Toprol Xl] 100 mg PO DAILY 06/14/19 [History] Milk Thistle 150 mg PO DAILY 06/14/19 [History] Morphine Sulfate [Ms Contin] 15 mg PO DAILY 06/14/19 [History] Multivitamins, Thera [Multivitamin (formulary)] 1 tab PO DAILY 06/14/19 [History] Walcott-3 Fatty Acids/Fish Oil [Fish Oil 1,000 mg Softgel] 1 cap PO DAILY 06/14/19 [History] Vitamin B (Unknow Otc) 1 tab PO DAILY 06/14/19 [History] Aspirin 81 mg PO DAILY #30 chew 06/16/19 [Rx] Atorvastatin [Lipitor] 40 mg PO DAILY #30 tab 06/16/19 [Rx] Follow up Appointment(s)/Referral(s): Rogelio Gaspar MD [STAFF PHYSICIAN] - 06/23/19 (Appointment made for June 23 at 1:30 pm) Mario Wallace DO [Primary Care Provider] - 06/20/19 10:20 am
[2019-06-16] MEDS: ALPRAZolam 0.5 MG TAB PO PRN (13:16)
[2019-06-16 16:01] VITALS: BP 123/78; PULSE 51; RESP 18; TEMP 97.6
--- NOTE | 2019-06-17 08:30 | PN ---
PROGRESS NOTE Mr. Arias is a gentleman who came to the hospital with chest pain, lot of anxiety, had a positive stress test, advised cardiac cath. Risks, benefits, options explained, talked to him in detail regarding the rationale for the procedure. In 2012, he had a cardiac cath which revealed patent coronaries with a takotsubo type picture. This morning he feels better. Vitals are stable. S1-S2 heard normally. Lungs are clear. Abdomen and lower extremity exam unchanged. Plan is to perform cardiac cath today. MMODL / IJN: [id number] /
[2019-06-17] MEDS ORDERED: ASPIRIN 81 MG PO SCH (09:00)
== END 2019-06-16 17:20 | disposition home or self-care (01) | DRG 287 ==
LOC: EC 06:09 → 1SOBS 08:05 → OBSVTOIN 06-15 13:03
PROVIDERS: ADMIT Internal Medicine; ATTEND Internal Medicine
PROC: B2111ZZ Fluoroscopy of Multiple Coronary Arteries using Low Osmolar Contrast (ICD-10-PCS; principal; 2019-06-16 07:30)
PROC: 4A023N7 Measurement of Cardiac Sampling and Pressure, Left Heart, Percutaneous Approach (ICD-10-PCS; principal; 2019-06-16 07:30)
DX: R07.89 Other chest pain (principal); I51.81 Takotsubo syndrome; I10 Essential (primary) hypertension; I45.10 Unspecified right bundle-branch block; T46.1X5A Adverse effect of calcium-channel blockers, initial encounter; E78.5 Hyperlipidemia, unspecified; F41.9 Anxiety disorder, unspecified; R60.0 Localized edema; M54.9 Dorsalgia, unspecified; G89.29 Other chronic pain; Z79.899 Other long term (current) drug therapy; Z87.891 Personal history of nicotine dependence; Z88.8 Allergy status to other drugs, medicaments and biological substances; Z98.890 Other specified postprocedural states
CPT/HCPCS: 36415; 71046; 78452; 80053; 80061; 83690; 83735; 83880; 84484; 85025; 85049; 85379; 85610; 85730; 93005; 93017; 93306; 93458; 96365; 96366; 96376; 99285

== ENCOUNTER 2021-02-12 07:28 | Day surgery (SDC) | payer BC ==
[2021-02-05 16:20] VITALS: BMI 33.0
[~2021-02-12 07:28] MED LIST: ACETAMINOPHEN TAB 500 MG TAB PO PRN; GABAPENTIN 300 MG CAP PO PRN; HYDROmorphone 0.5 MG/0.5 ML SYRINGE IVP PRN; LACTATED RINGERS 1,000 ML IV SCH; MELOXICAM 7.5 MG TAB PO PRN; ONDANSETRON 4 MG/2 ML VIAL IVP ONE; TRANEXAMIC ACID 1,000 MG in SODIUM CHLORIDE 0.9% 100 ML IVPB PRN; fentaNYL (PF) 50 MCG/ML 2 ML AMP IV PRN
[2021-02-12] MEDS ORDERED: DEXAMETHASONE SOD PHOSPHATE 4 MG/ML 1 ML VIAL IVP ONE (08:26)
[2021-02-12] MEDS ORDERED: fentaNYL (PF) 50 MCG/ML 2 ML AMP IVP ONE (08:43)
[2021-02-12] MEDS ORDERED: MIDAZOLAM 2 MG/2 ML VIAL IVP ONE (08:43)
[2021-02-12] MEDS ORDERED: HYDROmorphone 0.2 MG/1 ML SYRINGE IVP PRN (09:08)
[2021-02-12] MEDS ORDERED: HYDROmorphone 0.5 MG/0.5 ML SYRINGE IVP PRN (09:08)
[2021-02-12] MEDS ORDERED: HYDROmorphone 1 MG/ML 1 ML SYRINGE IVP PRN (09:08)
[2021-02-12] MEDS ORDERED: NALOXONE 0.4 MG/ML 1 ML VIAL IV PRN (09:08)
[2021-02-12] MEDS ORDERED: HYDROcodone/APAP 7.5-325MG 1 EACH TAB PO PRN (09:09)
[2021-02-12] MEDS ORDERED: SODIUM CHLORIDE 0.9% 1,000 ML IV SCH (09:15)
[2021-02-12] MEDS ORDERED: MIDAZOLAM 2 MG/2 ML VIAL ONE (09:17)
[2021-02-12] MEDS ORDERED: SODIUM CHLORIDE 0.9% (PF) 10 ML VIAL ONE (09:17)
[2021-02-12] MEDS ORDERED: SUCCINYLCHOLINE CHLORIDE 100 MG/5 ML SYR IV ONE (09:17)
[2021-02-12] MEDS ORDERED: ROPIVACAINE 5 MG/ML 30 ML VIAL ONE (09:17)
[2021-02-12] MEDS ORDERED: LIDOCAINE 1% INJ 10MG/ML (20 ML MDV) ONE (09:17)
[2021-02-12] MEDS ORDERED: TRANEXAMIC ACID 1,000 MG/10 ML VIAL ONE (09:17)
[2021-02-12] MEDS ORDERED: fentaNYL (PF) 50 MCG/ML 2 ML AMP ONE (09:17)
[2021-02-12] MEDS ORDERED: SODIUM CHLORIDE 0.9% 100 ML BAG ONE (09:17)
[2021-02-12] MEDS ORDERED: PROPOFOL 10 MG/ML 20 ML VIAL IV ONE (09:17)
[2021-02-12] MEDS ORDERED: HYDROmorphone (PF) 1 MG/ML ONE (09:17)
[2021-02-12] MEDS ORDERED: ceFAZolin 3,000 MG in SODIUM CHLORIDE 0.9% IRRIGATIO 3,000 ML IRRIGATION ONE (09:44)
[2021-02-12] MEDS: ROPIVACAINE 246.25 MG, EPINEPHrine 0.5 MG, KETOROLAC 30 MG, cloNIDine HCL/PF 80 MCG, WA... MISCELLANE PRN ×10 (09:57→10:11)
--- NOTE | 2021-02-12 10:34 | P.OP ---
Date of Procedure: 02/12/21 Preoperative Diagnosis: severe osteoarthritis left knee Postoperative Diagnosis: severe osteoarthritis left knee Procedure(s) Performed: left total knee arthroplasty utilizing [employer] patient specific guides Implants: Murphy and Nephew Cruciate Retaining Journey II CR Oxinium Femoral Component size 6, left Murphy & Nephew Journey Nonporous Tibial Baseplate size 6, left Murphy & Nephew Journey II CR, XLPE Articular Insert, 9 mm, size 5-6 Murphy & Nephew Hannah II Resurfacing Patellar Component, Oval, 35 mm All components were cemented using Palacose R bone cement. The articulation is Oxinium on polyethylene. [employer] patient specific guides Anesthesia: GETA Surgeon: Mario Hummel Associate Designer #1: Edita Villegas Estimated Blood Loss (ml): 25 Pathology: other (bone and cartilage) Condition: stable Disposition: PACU Indications for Procedure: After failure of conservative treatment we discussed the surgical and nonsurgical treatment options at length. Patient wishes to proceed with a total knee arthroplasty. Complications specific to this procedure were discussed at length, including but not limited to infection, bleeding, stiffness, and nerve injury. Covid-19 was also discussed at length with the patient, and they are aware of the current policies and procedures. The patient was given the option of delaying surgery, but they elect to proceed knowing these risks. Patient is aware of all these complications and informed consent was obtained Operative Findings: the operative findings are consistent with severe osteoarthritis of the left knee Description of Procedure: Patient was seen in the preoperative area and the consent was reviewed and the operative site was marked with a skin marker. The patient verified the procedure and the operative site. An adductor canal pain catheter was placed by anesthesia in the preoperative area. The patient was then brought to the operating room and given preoperative antibiotics intravenously. A gram of transexamic acid was given intravenously. A general anesthetic was administered by the anesthesia department. A tourniquet was placed on the upper thigh and the lower extremity was prepped with chlorhexidine and draped in usual sterile fashion. A universal timeout was then performed which confirmed the patient's name, surgical site, ALLERGIES, and consent. The lower extremity was then exsanguinated and tourniquet was inflated to 250 mmHg. A standard anterior midline approach to the knee was performed. The skin and subcutaneous tissue were sharply dissected down to the patellar tendon. A medial parapatellar arthrotomy was then performed. The knee was then extended, the patellar was everted, and the knee was again flexed. The infra-patellar fat pad was removed in order to enhance exposure. The anterior horns of both menisci were excised, and a release was performed to the posterior medial aspect of the knee. On gross visual inspection, there was complete loss of articular cartilage in the medial and patellofemoral joint spaces. There was also significant cartilage damage in the lateral compartment. There were multiple periarticular osteophytes globally about the knee. The patient specific guide was placed on the distal femur, and pinned in place. Using the patient specific guide, the distal femoral cut was performed. The cutting block was then removed and the cut was checked for symmetry. The spikes of the femoral block was then placed into the predrilled holes, and malleted into place. Two 45 mm pins were then placed into the fixation holes on the cutting block. An flaquita wing was then used to ensure there would be no notching with the anterior cut. The anterior condyles were cut without notching. The anterior chord cut was then p erformed, followed by the posterior cut, posterior chamfer cut, and the anterior chamfer cut. The collateral ligaments were protected during the entire process. The cutting block was then removed. Any remaining bone and osteophytes were removed from the femur with a Rominger. The femoral canal was plugged with autologous bone. Attention was then directed to the tibia. The remaining ACL was removed with a Ronguer, and the tibia was then gently subluxed forward with a large bent knee retractor. Any remaining menisci were excised. The posterior lateral corner was cauterized in order to coagulate the lateral geniculate artery. The patient specific guide for the tibia was then placed and was held in place with pins. Pinholes were then placed for rotation of the tibial component as well. Proximal tibia was then cut and sized. The femoral trial was placed. A narrow saw blade was then used to remove the anterior intracondylar femoral bone. The CR notch trial was then placed. The tibial trial was placed with the appropriate-sized insert. The knee was able to fully extend and flex to 130 and was stable throughout all range of motion. The knee was then extended and the patella was everted. Patella was then measured, and then using an osteotomy guide, the patella was cut at the appropriate level. The patella was then measured and drilled and the patella trial was then placed. The knee was then taken through range of motion with the patella trial and the patella tracked normally using the no thumbs technique.. The knee was then extended patella trial was then removed and the patella was everted. Knee was then flexed and lug holes were drilled through the femoral trial and the femoral trial was then removed. The tibial was then re-exposed, and the tibial broach guide was then pinned in place after it was set for the appropriate rotation to allow for the most coverage without overhang. The tibia was then reamed and broached. The cut surfaces of bone were then irrigated with pulsatile lavage. The posterior structures were injected with the ropivacaine solution. The knee was also irrigated with Irrisept solution. The components were then opened, the cement was mixed, and the components were then cemented in place. The cement was allowed to harden with the knee in full extension. While the cement was hardening, the remaining soft tissues were then injected with a ropivacaine solution, which consisted of 246.25 mg of ropivacaine, 0.5 mg of epinephrine, 30 mg of Toradol, 80 g of clonidine, and 48.45 mL of sterile water, for a total of 100 mL of fluid injected. After the cemented hardened. The tourniquet was released, and hemostasis was obtained. A second gram of transexamic acid was given intravenously. The knee was again irrigated. The knee was again taken through range of motion and found to be stable throughout all range of motion of 0-130, and the patella tracked normally. The fascia was then closed with 0 Vicryl followed by #2 strata fix suture. The subcutaneous tissue was closed with 3-0 Vicryl and 3-0 strata fix. Exofin glue was used for the skin and placed with the knee in flexion. After the glue had dried, and Optafoam silver impregnated dressing was applied. The patient was then transferred to recovery room in stable condition. The teachers assistant LUDY Aparicio was required due the complexity surgery and the need for a skilled food and beverage assistant manager. She assisted in positioning, draping, retraction, and closure of the wound.
[2021-02-12] MEDS ORDERED: LACTATED RINGERS 1,000 ML IV ONE ×2 (10:48→14:20)
[2021-02-12 11:25] VITALS: TEMP 97.8
[2021-02-12] MEDS ORDERED: ROPIVACAINE 0.2%-NS ON-Q PUMP 1,090 MG, EMPTY PAIN BALL 1 EACH MISCELLANE PRN ×2 (11:27→12:26)
[2021-02-12] MEDS ORDERED: diphenhydrAMINE 50 MG/ML 1 ML VIAL IVP ONE (11:30)
[2021-02-12] MEDS: HYDROmorphone 1 MG/ML 1 ML SYRINGE IVP ONE ×2 (11:30→11:35)
--- NOTE | 2021-02-12 11:53 | XR ---
EXAMINATION TYPE: XR knee limited LT DATE OF EXAM: 02/12/2021 COMPARISON: NONE TECHNIQUE: Two views submitted HISTORY: Post op FINDINGS: There is a prosthetic knee in near anatomic alignment. There is soft tissue edema and emphysema. IMPRESSION: 1. Postoperative change. Appears in near-anatomic alignment
[2021-02-12 12:11] VITALS: RESP 18
[2021-02-12] MEDS: HYDROcodone/APAP 7.5-325MG 1 EACH TAB PO PRN ×2 (12:46→13:20)
--- NOTE | 2021-02-12 14:42 | P.ANPRN ---
Procedure Note - Anesthesia - Nerve Block Performed Left Adductor Canal Time Out Performed: Yes (08:42) Date of Procedure: 02/12/21 Procedure Start Time: :42 Location of Patient: PreOp Indication: Acute Post-Operative Pain, Requested by Surgeon (Aria hendricks) Sedation Type: Sedate with meaningful contact maintained Preparation: Sterile Prep, Sterile Dressing Position: Supine Catheter: Indwelling Needle Types: Pajunk Needle Gauge: 21 Ultrasound used to visualize needle placement: Yes Ultrasound used to observe medication spread: Yes Injectate: 0.5% Ropivacaine (see comment for volume) (18cc) Blood Aspirated: No Pain Paresthesia on Injection Noted: No Resistance on Injection: Normal Image Stored and Saved: Yes Events: Uneventful and Well Tolerated
--- NOTE | 2021-02-12 14:43 | P.ANPRN ---
Procedure Note - Anesthesia - Nerve Block Performed Left iPack Time Out Performed: Yes (08:59) Date of Procedure: 02/12/21 Procedure Start Time: Procedure Stop Time: :12 Location of Patient: PreOp Indication: Acute Post-Operative Pain, Requested by Surgeon Sedation Type: Sedate with meaningful contact maintained Preparation: Sterile Prep Position: Supine Catheter: None Needle Types: Pajunk Needle Gauge: 21 Ultrasound used to visualize needle placement: Yes Ultrasound used to observe medication spread: Yes Injectate: 0.5% Ropivacaine (see comment for volume) (12cc + 12cc preservative free normal saline) Blood Aspirated: No Pain Paresthesia on Injection Noted: No Resistance on Injection: Normal Image Stored and Saved: Yes Events: Uneventful and Well Tolerated
[2021-02-12 15:00] VITALS: BP 176/84; PULSE 110
== END 2021-02-12 15:51 | disposition home health service (06) ==
LOC: OR 07:28
PROVIDERS: ATTEND Orthopaedic Surgery
DX: M17.12 Unilateral primary osteoarthritis, left knee (principal); E78.5 Hyperlipidemia, unspecified; I10 Essential (primary) hypertension; R63.4 Abnormal weight loss; R51.9 Headache, unspecified; Z97.3 Presence of spectacles and contact lenses; Z79.891 Long term (current) use of opiate analgesic; Z98.890 Other specified postprocedural states; I45.10 Unspecified right bundle-branch block; E78.2 Mixed hyperlipidemia; M51.37 Other intervertebral disc degeneration, lumbosacral region; M50.30 Other cervical disc degeneration, unspecified cervical region; M45.9 Ankylosing spondylitis of unspecified sites in spine; E29.1 Testicular hypofunction; E55.9 Vitamin D deficiency, unspecified; G47.33 Obstructive sleep apnea (adult) (pediatric); Z79.899 Other long term (current) drug therapy; Z88.8 Allergy status to other drugs, medicaments and biological substances
CPT/HCPCS: 97110; 97161; 64999; 64448; 76942; 88300; 73560; 27447; C1713; C1776; J2250; J0171; J1200; J1100; J0690 ×2; J2405; J2001; J3010; J1885; J1170; J2795 ×2; J0330; J2704; J0735

== ENCOUNTER 2023-11-18 17:08 | Emergency (ER) | payer BC ==
--- NOTE | 2023-11-18 17:15 | ED ---
Head Injury HPI - General Source: patient, family, RN notes reviewed <Annabel Flores - Last Filed: 11/18/23 17:13> - General Source: RN notes reviewed, old records reviewed Limitations: no limitations - History of Present Illness MD Complaint: head injury, head pain -: days(s) Location: parietal Loss of Consciousness: yes Previous Trauma to this Area: No Place: home Radiation: none Severity: moderate Severity scale (1-10): 5 Quality: sharp Consistency: constant Provoking factors: none known Other Injuries: none <Matthew Ruano - Last Filed: 11/26/23 03:05> - General Stated complaint: High BP, fall-head injury Time Seen by Provider: 11/18/23 17:13 - History of Present Illness Initial comments: Patient is a 58-year-old male presented ER with chief complaint of a head injury. Patient states yesterday he was seen at his kitchen table and upon marissa ding up he fell. Patient states he hit his head and now has a bruise on the back of his head. Patient does report he loss consciousness. Patient also reports that he urinated himself while on the ground. Patient is not on any blood thinners. Patient denies any chest pain, shortness of breath, fevers, chills, night sweats. He denies any significant past medical history. (Annabel Flores) This 58-year-old male to the ER for syncopal event with a head injury. (Matthew Ruano) - Related Data Home Medications Medication Instructions Recorded Confirmed Metoprolol Succinate (ER) [Toprol 100 mg PO DAILY 06/14/19 02/12/21 XL] Milk Thistle 150 mg PO DAILY 06/14/19 02/05/21 Multivitamins, Thera [Multivitamin 1 tab PO DAILY 06/14/19 02/05/21 (formulary)] Lyons-3 Fatty Acids/Fish Oil [Fish 1 cap PO DAILY 06/14/19 02/05/21 Oil 1,000 mg Softgel] Ergocalciferol [Vitamin D2 (1250 1,250 mcg PO WEEKLY 02/05/21 02/05/21 Mcg = 05262 Iu)] Percocet(Unknown Dose) 1 tab PO QID 02/05/21 02/12/21 Pravastatin Sodium [Pravachol] 40 mg PO HS 02/05/21 02/05/21 lisinopriL [Zestril] 40 mg PO BID 02/05/21 02/12/21 Previous Rx's Medication Instructions Recorded Aspirin 325 mg PO BID #60 tab 02/12/21 Celecoxib [CeleBREX] 200 mg PO DAILY 5 Days #5 capsule 02/12/21 HYDROcodone/APAP 7.5-325MG [[place] 1 - 2 tab PO Q6H PRN #24 tab 02/12/21 7.5-325] Ondansetron Odt [Zofran Odt] 1 tab PO Q8HR PRN #10 tab 02/12/21 Sennosides [Senokot] 2 tab PO DAILY PRN #60 tablet 02/12/21 Allergies/Adverse reactions: Allergies Allergy/AdvReac Type Severity Reaction Status Date / Time No Known Allergies Allergy Verified 11/18/23 17:54 Review of Systems ROS Other: All systems not noted in ROS Statement are negative. <Annabel Flores - Last Filed: 11/18/23 17:13> ROS Other: All systems not noted in ROS Statement are negative. <Matthew Ruano - Last Filed: 11/26/23 03:05> ROS Statement: Those systems with pertinent positive or pertinent negative responses have been documented in the HPI. Past Medical History Past Medical History: Hyperlipidemia, Hypertension Additional Past Medical History / Comment(s): BROKEN HEART SYNDROME, torn meniscus in left knee, History of Any Multi-Drug Resistant Organisms: None Reported Additional Past Surgical History / Comment(s): SHOULDER SURGERY, PILONIDAL CYST REMOVAL, nerve removed from left foot, Past Psychological History: No Psychological Hx Reported Past Alcohol Use History: Rare Past Drug Use History: None Reported <Annabel Flores - Last Filed: 11/18/23 17:13> General Exam <Annabel Flores - Last Filed: 11/18/23 17:13> General appearance: alert, in no apparent distress, anxious Head exam: Present: atraumatic, normocephalic, normal inspection Eye exam: Present: normal appearance, PERRL, EOMI. Absent: scleral icterus, conjunctival injection, periorbital swelling ENT exam: Present: normal exam, mucous membranes moist Neck exam: Present: normal inspection. Absent: tenderness, meningismus, lymphadenopathy Respiratory exam: Present: normal lung sounds bilaterally. Absent: respiratory distress, wheezes, rales, rhonchi, stridor Cardiovascular Exam: Present: regular rate, normal rhythm, normal heart sounds. Absent: systolic murmur, diastolic murmur, rubs, gallop, clicks GI/Abdominal exam: Present: soft, normal bowel sounds. Absent: distended, tenderness, guarding, rebound, rigid Extremities exam: Present: normal inspection, full ROM, normal capillary refill. Absent: tenderness, pedal edema, joint swelling, calf tenderness Back exam: Present: normal inspection Neurological exam: Present: alert, oriented X3, CN II-XII intact Psychiatric exam: Present: normal affect, normal mood Skin exam: Present: warm, dry, intact, normal color. Absent: rash <Matthew Ruano - Last Filed: 11/26/23 03:05> - General Exam Comments Initial Comments: Visual Physical Exam Vital signs reviewed General: Well-appearing, nontoxic, no acute distress. Head: Normocephalic, atraumatic Eyes: PERRLA, EOMI ENT: Airway patent Chest: Nonlabored breathing Skin: No visual rash, normal skin tone Neuro: Alert and oriented 3 Musculoskeletal: No gross abnormalities (Annabel Flores) Course <Matthew Ruano - Last Filed: 11/26/23 03:05> Vital Signs 11/18/23 11/18/23 17:50 22:47 Temperature 98.7 F Pulse Rate 68 61 Respiratory 18 18 Rate Blood Pressure 187/111 209/122 O2 Sat by Pulse 97 92 L Oximetry - Reevaluation(s) Reevaluation #1: Records reviewed (Matthew Ruano) Reevaluation #2: Patient has no recurrent syncope here in the ER headache chest pain shortness breath or abdominal pain (Matthew Ruano) Reevaluation #3: Patient informed results and questions answered (Matthew Ruano) Reevaluation #4: Was pt. sent in by a medical professional or institution (, PA, RECHARGER, urgent care, hospital, or halfway...) When possible be specific @ -no Did you speak to anyone other than the patient for history (EMS, parent, family, police, friend...)? What history was obtained from this source @ -no Did you review nursing and triage notes (agree or disagree)? Why? @ -agree Are old charts reviewed (outside hosp., previous admission, EMS record, old EKG, old radiological studies, urgent care reports/EKG's, halfway records)? Report findings @ -yes Differential Diagnosis (chest pain, altered mental status, abdominal pain women, abdominal pain men, vaginal bleeding, weakness, fever, dyspnea, syncope, headache, dizziness, GI bleed, back pain, seizure, CVA, palpatations, mental health, musculoskeletal)? @ -prior EKG interpreted by me (3pts min.). @ -yes X-rays interpreted by me (1pt min.). @ -no CT interpreted by me (1pt min.). @ -yes U/S interpreted by me (1pt. min.). @ -no What testing was considered but not performed or refused? (CT, X-rays, U/S, labs)? Why? @ -none What meds were considered but not given or refused? Why? @ -none Did you discuss the management of the patient with other professionals (professionals i.e. , PA, RECHARGER, lab, RT, psych nurse, social research assistant, transit proof machine operator, teacher, college service officer, case filler)? Give summary @ -no Was smoking cessation discussed for >3mins.? @ -no Was critical care preformed (if so, how long)? @ -no Were there social determinants of health that impacted care today? How? (Homelessness, low income, unemployed, alcoholism, drug addiction, transportation, low edu. Level, literacy, decrease access to med. care, assisted, rehab)? @ -none Was there de-escalation of care discussed even if they declined (Discuss DNR or withdrawal of care, Hospice)? DNR status @ -no What co-morbidities impacted this encounter? (DM, HTN, Smoking, COPD, CAD, Cancer, CVA, ARF, Chemo, Hep., AIDS, mental health diagnosis, sleep apnea, morbid obesity)? @ -none Was patient admitted / discharged? Hospital course, mention meds given and route, prescriptions, significant lab abnormalities, going to OR and other pertinent info. @ - Undiagnosed new problem with uncertain prognosis? @ -no Drug Therapy requiring intensive monitoring for toxicity (Heparin, Nitro, Insulin, Cardizem)? @ -no Were any procedures done? @ -no Diagnosis/symptom? @ -58 male with a syncopal event resulting in head contusion with no specific other traumatic injury noted. Patient has no complaints here in the ER no headache chest pain shortness with abdominal pain patient can be discharged home Acute, or Chronic, or Acute on Chronic? @ -Acute Uncomplicated (without systemic symptoms) or Complicated (systemic symptoms)? @ -Complicated Side effects of treatment? @ -no Exacerbation, Progression, or Severe Exacerbation? @ -exacerbation Poses a threat to life or bodily function? How? (Chest pain, USA, CO, pneumonia, PE, COPD, DKA, ARF, appy, cholecystitis, CVA, Diverticulitis, Homicidal, Suicidal, threat to staff... and all critical care pts) @ -yes with any acute cause of syncope (Matthew Ruano) Reevaluation #5: Differential Syncope: Valvular disease, hypertrophic cardiomyopathy, pulmonary embolism, tamponade, tachycardia, bradycardia, CO, hypovolemia, hemorrhage, dissection, anemia, intra cranial hemorrhage, seizure, hypoglycemia, carbon monoxide poisoning, this is not meant to be an all-inclusive list. (Matthew Ruano) Medical Decision Making <Annabel Flores - Last Filed: 11/18/23 17:13> - Lab Data Result diagrams: 11/18/23 17:55 11/18/23 17:55 - EKG Data -: EKG Interpreted by Me (EKG is sinus 64 MI 164 QRS 146 QTc 458) - Radiology Data Radiology results: report reviewed (CT brain C-spine is negative for acute disease), image reviewed <Matthew Ruano - Last Filed: 11/26/23 03:05> - Medical Decision Making I performed the quick note portion of the exam. Electronically signed by Annabel Flores PA-C (Annabel Flores) 58 male with a syncopal event resulting in head contusion with no specific other traumatic injury noted. Patient has no complaints here in the ER no headache chest pain shortness with abdominal pain patient can be discharged home (Matthew Ruano) - Lab Data Lab Results 11/18/23 11/18/23 11/18/23 Range/Units 17:55 17:55 17:55 WBC 8.9 (3.8-10.6) k/uL RBC 4.56 (4.30-5.90) m/uL Hgb 13.6 (13.0-17.5) gm/dL Hct 39.8 (39.0-53.0) % MCV 87.2 (80.0-100.0) fL MCH 29.8 (25.0-35.0) pg MCHC 34.2 (31.0-37.0) g/dL RDW 12.4 (11.5-15.5) % Plt Count 259 (150-450) k/uL MPV 7.1 Sodium 137 (137-145) mmol/L Potassium 3.8 (3.5-5.1) mmol/L Chloride 100 (98-107) mmol/L Carbon Dioxide 25 (22-30) mmol/L Anion Gap 12 mmol/L BUN 14 (9-20) mg/dL Creatinine 0.65 L (0.66-1.25) mg/dL Est GFR (CKD-EPI)AfAm >90 (>60 ml/min/1.73 sqM) Est GFR (CKD-EPI)NonAf >90 (>60 ml/min/1.73 sqM) Glucose 92 (74-99) mg/dL Calcium 9.9 (8.4-10.2) mg/dL Total Bilirubin 0.6 (0.2-1.3) mg/dL AST 24 (17-59) U/L ALT 52 H (4-49) U/L Alkaline Phosphatase 72 (38-126) U/L Troponin I <0.012 (0.000-0.034) ng/mL Total Protein 7.6 (6.3-8.2) g/dL Albumin 4.8 (3.5-5.0) g/dL Disposition <Annabel Flores - Last Filed: 11/18/23 17:13> Is patient prescribed a controlled substance at d/c from ED?: No Time of Disposition: 22:00 <Matthew Ruano - Last Filed: 11/26/23 03:05> Clinical Impression: Fall, Syncope, Contusion of occipital region of scalp Narrative: Syncope V Seizure (Matthew Ruano) Disposition: HOME SELF-CARE Condition: Good Instructions (If sedation given, give patient instructions): Syncope (ED) Referrals: Mario Wallace DO [Primary Care Provider] - 1-2 days
[2023-11-18 18:13] VITALS: RESP 18; TEMP 98.7
--- NOTE | 2023-11-18 19:20 | CT ---
EXAMINATION TYPE: CT brain cspine wo con CT DLP: 1570.1 mGycm, Automated exposure control for dose reduction was used. DATE OF EXAM: 11/18/2023 6:36 PM COMPARISON: None. CLINICAL INDICATION:Male, 58 years old with history of pain; syncope, TECHNIQUE: Brain: Multiple axial CT images of the brain were obtained without IV contrast. Cspine: Axial CT images from the skull base to the inferior aspect of T2 we obtained without intraven ous contrast. Coronal and sagittal reformatted images were also reviewed. FINDINGS: Brain: Extra-axial spaces: No suspicious abnormal extra-axial fluid collections. There is a dilated CSF atte nuating region in the posterior cranial fossa suggesting alisson cisterna magna. Ventricular system: Within normal limits. Cerebral parenchyma: No increased attenuation to suggest acute intraparenchymal hemorrhage. The gra y-white matter interface appears maintained. No significant atrophy. White matter unremarkable by C T. Cerebellum: No acute abnormality. Mass effect: No evidence of mass effect or midline shift. Intracranial vasculature: Unremarkable Soft tissues: Pharyngeal tonsils are prominent. No acute soft tissue abnormality. Visualized orbits: Orbital contents appear grossly intact. Calvarium/osseous structures: No evidence of calvarial fracture. Paranasal sinuses and mastoid air cells: Mild mucosal thickening right maxillary. Moderate mucosal th ickening left maxillary with superimposed fluid level. Extensive opacification throughout most of the left ethmoid air cells, with milder disease throughout right ethmoid air cells. Mild mucosal thicken ing right sphenoid sinus. Moderate nasal septal deviation towards the left in its midportion with oss eous spur. Significant narrowing of the left nasal passage and only the inferior turbinate can be see n. There is the suggestion of soft tissue occlusion of the left ostiomeatal unit which may be widened . Mild frontal sinus mucosal thickening. Mastoid air cells are clear. MRI is more sensitive for detecting acute processes such as infarct, and may be considered if clinica lly warranted. Cervical spine: Fracture: None seen. Osseous structures, spinal canal/neural foramina: Generalized osteopenia. Mild/moderate multilevel de generative disc disease and facet arthrosis, appears most significant C2-C3 where there is moderate l eft neural foraminal stenosis, C3-C4 where there is moderate left neural foraminal stenosis, and C6-C 7 where there is moderate bilateral neural foraminal stenosis. Milder narrowing at the other levels. Vertebral alignment: No traumatic malalignment. Preserved normal cervical lordosis. Neck soft tissues: No acute finding.. Mild calcifications of the carotid bifurcations. Other: Lung apices show no acute infiltrate or pneumothorax. IMPRESSION: CT head: 1. No acute intracranial abnormality 2. Extensive paranasal sinus mucosal thickening. Superposed fluid level in the left maxillary, correl ate for acute on chronic sinusitis. CT cervical spine: 1. No evidence of cervical spine fracture or traumatic malalignment. 2. Mild/moderate cervical spondylosis.
[2023-11-18 20:07] LABS: HCT 39.8 % (39.0-53.0); HGB 13.6 gm/dL (13.0-17.5); MCH 29.8 pg (25.0-35.0); MCHC 34.2 g/dL (31.0-37.0); MCV 87.2 fL (80.0-100.0); Mean Platelet Volume 7.1; Platelet Count 259 k/uL (150-450); RBC 4.56 m/uL (4.30-5.90); RDW 12.4 % (11.5-15.5); WBC 8.9 k/uL (3.8-10.6)
[2023-11-18 20:31] LABS: ALT 52 U/L (4-49); AST 24 U/L (17-59); African American GFR (CKD) >90 (>60 ml/min/1.73 sqM); Albumin 4.8 g/dL (3.5-5.0); Alkaline Phosphatase 72 U/L (38-126); Anion Gap 12 mmol/L; Blood Urea Nitrogen 14 mg/dL (9-20); Calcium 9.9 mg/dL (8.4-10.2); Carbon Dioxide 25 mmol/L (22-30); Chloride 100 mmol/L (98-107); Glucose 92 mg/dL (74-99); Non-African American GFR(CKD) >90 (>60 ml/min/1.73 sqM); Potassium 3.8 mmol/L (3.5-5.1); Sodium 137 mmol/L (137-145); Total Bilirubin 0.6 mg/dL (0.2-1.3); Total Protein 7.6 g/dL (6.3-8.2)
[2023-11-18 22:56] VITALS: BP 209/122; PULSE 61
== END 2023-11-18 22:48 | disposition home or self-care (01) ==
LOC: EC 17:08
DX: S00.03XA Contusion of scalp, initial encounter (principal); I25.2 Old myocardial infarction; E78.5 Hyperlipidemia, unspecified; I10 Essential (primary) hypertension; Z79.899 Other long term (current) drug therapy; W18.09XA Striking against other object with subsequent fall, initial encounter; Y92.000 Kitchen of unspecified non-institutional (private) residence as the place of occurrence of the external cause
CPT/HCPCS: 36415; 70450; 72125; 80053; 84484; 85027; 93005; 99284

== ENCOUNTER → 2023-12-16 | Outpatient (CLI) | payer BC ==
--- NOTE | 2023-12-16 16:34 | US ---
EXAMINATION TYPE: US carotid duplex BILAT DATE OF EXAM: 12/16/2023 COMPARISON: NONE CLINICAL INDICATION: Male, 58 years old with history of R55 SYNCOPE AND COLLAPSE; Syncope with collap se TECHNIQUE: Carotid duplex ultrasound examination. Indirect Doppler criteria was utilized. FINDINGS: EXAM MEASUREMENTS: RIGHT: Peak Systolic Velocity (PSV) cm/sec ----- Right CCA: 77.3 ----- Right ICA: 99.3 ----- Right ECA: 91.2 ICA/CCA ratio: 1.28 RIGHT: End Diastole cm/sec ----- Right CCA: 9.8 ----- Right ICA: 27.0 ----- Right ECA: 0.0 LEFT: Peak Systolic Velocity (PSV) cm/sec ----- Left CCA: 103 ----- Left ICA: 102 ----- Left ECA: 86.1 ICA/CCA ratio: 0.99 LEFT: End Diastole cm/sec ----- Left CCA: 16.9 ----- Left ICA: 27.0 ----- Left ECA: 4.6 VERTEBRALS (direction of flow): Right Vertebral: Antegrade Left Vertebral: Antegrade Rhythm: Normal [employer] O[employer] NOTES: Mild plaque bilateral bifurcations. No evidence of significant stenosis IMPRESSION: Less than 50% stenosis of the carotid bifurcations. Criteria for Assigning % of Stenosis / Diameter reduction (Estimation based on the indirect measurements of the internal carotid artery velocities (ICA PSV). 1. Normal (no stenosis)=ICA PSV < 125 cm/s: ratio < 2.0: ICA EDV<40 cm/s. 2. Less than 50% stenosis=ICA PSV < 125 cm/s: ratio < 2.0: ICA EDV<40 cm/s. 3. 50 to 69% stenosis=ICA PSV of 125 to 230 cm/s: ration 2.0 ? 4.0: ICA EDV 40-100 cm/s. 4. Greater than 70% stenosis to near occlusion= ICA PSV > 230 cm/s: ratio > 4.0: ICA EDV > 100 cm/s. 5. Near occlusion= ICA PSV velocities may be low or undetectable: variable ratio and ICA EDV. 6. Total occlusion=unable to detect flow.
--- NOTE | 2023-12-17 12:03 | CA ---
Transthoracic Echo Report Name: Akash Arias Age: 58 Gender: M : 1965 Exam Date: 12/16/2023 14:46 Exam Location: [place] [facility] Ht (in): 70 Wt (lb): 247 Ordering Physician: Mario Wallace DO Attending/Referring Phys: Track Helper Linda Loza [facility] Procedure CPT: Indications: R55 syncope/collapse R079 chest pain E782 mixed hy Cardiac Hx: Technical Quality: Technically difficult study Contrast 1: Definity Total Dose (mL): 5 Contrast 2: Total Dose (mL): MEASUREMENTS (Male / Female) Normal Values 2D ECHO LV Diastolic Diameter PLAX 5.3 cm 4.2 - 5.9 / 3.9 - 5.3 cm LV Systolic Diameter PLAX 3.4 cm IVS Diastolic Thickness 1.4 cm 0.6 - 1.0 / 0.6 - 0.9 cm LVPW Diastolic Thickness 1.3 cm 0.6 - 1.0 / 0.6 - 0.9 cm LV Relative Wall Thickness 0.5 LVOT Diameter 2.0 cm Ascending Aorta Diameter 3.6 cm M-MODE Aortic Root Diameter MM 3.8 cm LA Systolic Diameter MM 4.5 cm LA Ao Ratio MM 1.2 AV Cusp Separation MM 2.3 cm DOPPLER AV Peak Velocity 164.1 cm/s AV Peak Gradient 10.8 mmHg AV Mean Velocity 104.5 cm/s AV Mean Gradient 5.2 mmHg AV Velocity Time Integral 33.3 cm LVOT Peak Velocity 137.0 cm/s LVOT Peak Gradient 7.5 mmHg LVOT Velocity Time Integral 31.3 cm LVOT Stroke Volume 97.8 cm??? LVOT Stroke Volume Index 42.8 ml/m??? LVOT Cardiac Index 2124.0 cm???/min???m??? AV Area Cont Eq vti 2.9 cm??? AV Area Cont Eq pk 2.6 cm??? Mitral E Point Velocity 59.6 cm/s Mitral A Point Velocity 66.9 cm/s Mitral E to A Ratio 0.9 MV Deceleration Time 189.4 ms LV E' Lateral Velocity 11.8 cm/s Mitral E to LV E' Lateral Ratio 5.1 LV E' Septal Velocity 6.1 cm/s Mitral E to LV E' Septal Ratio 9.8 TR Peak Velocity 239.9 cm/s TR Peak Gradient 23.0 mmHg Right Atrial Pressure 8.0 mmHg Pulmonary Artery Systolic Pressu 31.0 mmHg Right Ventricular Systolic Press 31.0 mmHg FINDINGS Left Ventricle Mildly increased left ventricular wall thickness. Left ventricular cavity size normal. Normal left ventricular systolic function with no obvious regional wall motion abnormalities. Left ventricular ejection fraction is estimated at 55- 60%. Right Ventricle Moderate right ventricular dilatation. Mild pulmonary hypertension. Right Atrium Normal right atrial size. Left Atrium Normal left atrial size. Mitral Valve Structurally normal mitral valve. Mild mitral regurgitation. Aortic Valve Trileaflet aortic valve. No aortic valve stenosis or regurgitation. Tricuspid Valve Structurally normal tricuspid valve. Mild tricuspid regurgitation. Pulmonic Valve Pulmonic valve not well visualized. Pericardium No pericardial effusion. Echo free space anterior to the right ventricle likely represents a fat pad. Aorta Normal size aortic root and proximal ascending aorta. CONCLUSIONS Technically difficult study Normal LV systolic function Mild pulmonary hypertension Previewed by: Dr. Marcell Denton MD (Electronically Signed) Final Date: 17 December 2023 12:03
== END | disposition home or self-care (01) ==
LOC: RADECHMAIN 14:30
PROVIDERS: ATTEND Family Medicine
DX: I27.20 Pulmonary hypertension, unspecified (principal); I65.23 Occlusion and stenosis of bilateral carotid arteries; E78.2 Mixed hyperlipidemia; R07.9 Chest pain, unspecified; R53.83 Other fatigue
CPT/HCPCS: 93306; 93880; Q9957

== ENCOUNTER → 2024-03-28 | Outpatient (CLI) | payer BC ==
--- NOTE | 2024-03-28 10:59 | XR ---
EXAMINATION TYPE: XR cervical spine comp DATE OF EXAM: 03/28/2024 COMPARISON: NONE HISTORY: Pain TECHNIQUE: Four views are submitted. FINDINGS: The odontoid is intact. There are no compression deformities. The prevertebral soft tissue structur es are within normal limits. There is a anterolisthesis C4-C5 and degenerative changes lower cervica l spine. There is [id number] multilevel degenerative disc disease most marked at C3-C4 and C6-C7. Multil evel facet arthropathy most marked at C4-C5 and C5-C6. Multilevel bilateral foraminal slight curvatur e of the spine. IMPRESSION: 1. Multilevel moderate degenerative disc disease as discussed above with suspected multilevel foramin al encroachment. Recommend follow-up MRI. 2. Grade 1 anterolisthesis C4-C5.
== END | disposition home or self-care (01) ==
LOC: RADXRYALE 10:42
PROVIDERS: ATTEND Physician Assistant
DX: M50.31 Other cervical disc degeneration, high cervical region (principal); M50.321 Other cervical disc degeneration at C4-C5 level; M43.12 Spondylolisthesis, cervical region
CPT/HCPCS: 72050

== ENCOUNTER → 2024-04-15 | Outpatient (CLI) | payer BC ==
--- NOTE | 2024-04-16 11:59 | MR ---
EXAMINATION TYPE: MR cervical spine wo con DATE OF EXAM: 04/15/2024 COMPARISON: None HISTORY: Headaches, Neck pain x3 months CONTRAST: Performed utilizing 0 mL intravenous Gadavist gadolinium contrast. TECHNIQUE: Multiplanar multiecho imaging on a 3.0 Tara magnet is performed through the cervical spin e. FINDINGS: The craniovertebral junction is normal. Vertebral body alignment is normal. Disc desicca tion is present throughout the cervical spine. C7-T1: No focal disc herniation or significant disc bulge is evident. No spinal canal stenosis or n eural foraminal stenosis is present. C6-7: No focal disc herniation or significant disc bulge is evident. No spinal canal stenosis or lc ral foraminal stenosis is present. C5-6: No focal disc herniation or significant disc bulge is evident. No spinal canal stenosis or lc ral foraminal stenosis is present. C4-5: No focal disc herniation or significant disc bulge is evident. No spinal canal stenosis or lc ral foraminal stenosis is present. C3-4: Left paracentral disc bulging with associated endplate spurring has moderate anterior thecal sa c compression. No cord contact or cord deformity is evident. Moderate narrowing of the foramen from u ncovertebral joint hypertrophy may be present. Correlate with left radicular symptoms. C2-3: No focal disc herniation or significant disc bulge is evident. No spinal canal stenosis or lc ral foraminal stenosis is present. IMPRESSION: 1. There is some mild to moderate left paracentral disc bulging with moderate anterior thecal sac com pression at the C3-4 level. No spinal canal stenosis or cord deformity evident. Some associated endpl ate spurring is present at this level. 2. Uncovertebral joint hypertrophy on the left has moderate foraminal narrowing 4.
== END | disposition home or self-care (01) ==
LOC: RADMRIMAIN 18:28
PROVIDERS: ATTEND Family Medicine
DX: M47.22 Other spondylosis with radiculopathy, cervical region (principal); M99.71 Connective tissue and disc stenosis of intervertebral foramina of cervical region; M50.11 Cervical disc disorder with radiculopathy, high cervical region
CPT/HCPCS: 72141

== ENCOUNTER → 2024-05-11 | Outpatient (CLI) | payer BC ==
[2024-05-11 13:41] VITALS: BP 178/99; PULSE 62; RESP 16
--- NOTE | 2024-05-11 14:50 | P.PAINPG ---
PQRS Measure Charge Sheet Comment: HISTORY OF PRESENT ILLNESS: A 58 yr old male w at side as a referral from Dr Samayoa presents today w severe and chronic neck pain secondary to DDD, spondylosis and facet arthropathy without myelopathy for evaluation. Pt states pain level is provoked at 6 /10 in intensity, constant, localized in the cervical spine, predominantly axial, throbbing in character w occasional shooting pain towards the head and the UEs. Pain is provoked by rotation. Pain is alleviated by physician guided home exercises every other day since Feb 2024, heat, medications (Percocet 7.5/325mg #120, Tyl), [place] topical, repositioning and rest . Cervical disability score at 24. PMH: OA, Hyperlipidemia, HTN, "Broken Heart Syndrome" PSH: Shoulder Surgery, Pilonidal Cystectomy, L Foot Nerve Surgery SH: No tobacco use, Hx ETOH abuse, No illicit drug use FH: Non contributory All: See list Meds: See list REVIEW OF ORGAN SYSTEMS: CONSTITUTIONAL: No fevers or chills. No recent weight loss. NEUROLOGICAL: + numbness and tingling along the distal extremities. No seizure disorders or headaches. MUSCULOSKELETAL: + pain PSYCHIATRIC: Denies current depression or suicidal thoughts. Physical Examinations : Constitutional : Cooperative , not in acute distress . Neurologic : Cranial nerve II to XII intact. No focal neurological deficits. Psychiatric : alert & oriented x 3. Matching mood & appropriate affect. Judgment & insight intact. Musculoskeletal : Cervical Spine Motor strength in the deltoid and biceps: Normal right side. Normal Left side Motor strength biceps and the wrist extensors: Normal right side . Normal left side Motor strength in the triceps muscle: Normal right side. Normal left side Deep tendon reflexes: Normal at the biceps. Normal at Brachioradialis. Normal at triceps Vertebral body tenderness to deep palpation Cervical facet loading test: positive bilaterally C2-C3, C3-C4 Spurling test: positive bilaterally Neck distraction test: positive bilaterally Jenny sign: positive bilaterally Lumbar spine Motor strength lower extremities ,thigh and legs 5/5 Right side , 5/5 Left side Deep tendon reflexes : Normal Knee Jerk. Normal Ankle Jerk Vertebral body tenderness Sánchez Test positive Lumbar facet Loading Test: positive Right / positive Left Range of motion of the lumbar spine Flexion 30 degrees, extension 10 degrees Straight Leg Raise test: Left/ Right positive at degrees Kavita test: positive right / positive left. Severe tenderness over the Sacroiliac joint on the Right / Left sides Gaenslen test: positive bilaterally Seated flexion test: positive bilaterally. Sacral spine : Severe tenderness over the Sacroiliac joint: right side / left side Range of motion: Flexion of the lumbar spine <60 degrees Range of motion: Extension of the lumbar spine <20 degrees Gaenslen's Test positive Kavita test: positive right side / left side Thigh Thrust Test Sacral Thrust Test Imaging: MRI noncontrast of the cervical spine from 04/15/2024 reviewed Assessment/ Plan : C3-C4 disc bulge, Cervical DDD Recommendation of BL MBB C2-C3, C3-C4 #1. May need a series of injections, up until RFA, for optimal pain relief. Risks, benefits of procedure discussed and patient verbalized understanding. Admits to anti- coagulant use or medical history of diabetes. Protocol for discontinuation/ continuation of medications fan procedure discussed. Minimal anesthesia provided, if clinically indicated, consisting of Versed and Fentanyl. All questions answered. I have spent greater than 30 minutes on patient care today. Dr Wise was available by phone for the evaluation of this patient. The time was used to review the medical records including relevant urine studies and Prescription history (MAPs), review of the available imaging, evaluation and examination of the patient, coordination of care with the medical staff and if applicable referring physicians, as well as creation of the medical record PQRS Narrative: Smoking Status Former smoker Home Medications: Ambulatory Orders Metoprolol Succinate (ER) [Toprol XL] 100 mg PO DAILY 06/14/19 Milk Thistle 150 mg PO DAILY 06/14/19 Multivitamins, Thera [Multivitamin (formulary)] 1 tab PO DAILY 06/14/19 [place]-3 Fatty Acids/Fish Oil [Fish Oil 1,000 mg Softgel] 1 cap PO DAILY 06/14/19 Ergocalciferol [Vitamin D2 (1250 Mcg = 34416 Iu)] 1,250 mcg PO WEEKLY 02/05/21 Percocet(Unknown Dose) 1 tab PO QID 02/05/21 Pravastatin Sodium [Pravachol] 40 mg PO HS 02/05/21 lisinopriL [Zestril] 40 mg PO BID 02/05/21 Aspirin 325 mg PO BID #60 tab 02/12/21 Celecoxib [CeleBREX] 200 mg PO DAILY 5 Days #5 capsule 02/12/21 HYDROcodone/APAP 7.5-325MG [[place] 7.5-325] 1 - 2 tab PO Q6H PRN #24 tab 02/12/21 Ondansetron Odt [Zofran Odt] 1 tab PO Q8HR PRN #10 tab 02/12/21 Sennosides [Senokot] 2 tab PO DAILY PRN #60 tablet 02/12/21 Controlled Substance Measures - Controlled Substance Measures Is patient prescribed a controlled substance at discharge?: No
== END ==
LOC: PNWHC3 12:55
PROVIDERS: ATTEND Specialist
DX: M50.31 Other cervical disc degeneration, high cervical region (principal); R51.9 Headache, unspecified; M50.20 Other cervical disc displacement, unspecified cervical region; Z87.891 Personal history of nicotine dependence
CPT/HCPCS: 99211

== ENCOUNTER 2024-07-01 08:00 | Day surgery (SDC) | payer BC ==
[2024-07-01] MEDS ORDERED: LACTATED RINGERS 1,000 ML BAG ONE (08:50)
[2024-07-01] MEDS ORDERED: ROPIVACAINE 5MG/ML 20ML VIAL ONE (09:07)
[2024-07-01] MEDS ORDERED: MIDAZOLAM 2 MG/2 ML VIAL ONE (09:07)
--- NOTE | 2024-08-23 18:19 | FL ---
EXAMINATION TYPE: FL guided pain mgmt statistic DATE OF EXAM: 07/21/2024 12:14 PM COMPARISON: Pre Operative Images if available both CT/MRI or plain film CLINICAL INDICATION: Male, 58 years old with history of [facility]; TECHNIQUE: FL guided pain mgmt statistic, multiple fluoroscopic images provided for procedure. Total fluoroscopy time: 13 seconds Total submitted images to PACS: 6 DAP: 0.92393 mGym2 Gycm2 uGym2 cGycm2 or equivalent. FINDINGS: Fluoroscopic images during injection for pain management demonstrate multilevel degeneration changes throughout the spine. No evidence for fracture. No acute process identified. IMPRESSION: 1. No evidence for intraoperative complication. 2. Please see the operative/procedural note for further details. [facility], , 08/23/2024 6:17 PM
== END 2024-07-01 10:16 ==
LOC: ORPAIN 08:00
DX: M47.812 Spondylosis without myelopathy or radiculopathy, cervical region (principal); I10 Essential (primary) hypertension; E78.00 Pure hypercholesterolemia, unspecified; Z79.899 Other long term (current) drug therapy
CPT/HCPCS: 99152

== ENCOUNTER → 2024-07-27 | Outpatient (CLI) | payer BC ==
[2024-07-27 15:05] VITALS: BP 125/60; PULSE 67; RESP 16; TEMP 97.8
--- NOTE | 2024-07-27 15:24 | P.PAINPG ---
PQRS Measure Charge Sheet Comment: HISTORY OF PRESENT ILLNESS: A 58 yr old male w at side presents today w severe and chronic neck pain secondary to DDD, spondylosis and facet arthropathy without myelopathy for evaluation s/p BL MBB C2-C3, C3-C4 #1. Pt states he experienced 80 % pain relief x 4 hrs s/p procedure. Pt states pain level is provoked at 7 /10 in intensity, constant, localized in the cervical spine, predominantly axial, throbbing in character w occasional shooting pain towards the head, R> L. Pain is provoked by rotation. Pain is alleviated by physician guided home exercises every other day since Feb 2024, heat, medications, topical, repositioning and rest . Interventional procedures include BL MBB C2-C4 x1 Medications include Percocet 7.5/325mg #120, Tyl, [place], Hx ETOH abuse REVIEW OF ORGAN SYSTEMS: CONSTITUTIONAL: No fevers or chills. No recent weight loss. NEUROLOGICAL: + numbness and tingling along the distal extremities. No seizure disorders or headaches. MUSCULOSKELETAL: + pain PSYCHIATRIC: Denies current depression or suicidal thoughts. Physical Examinations : Constitutional : Cooperative , not in acute distress . Neurologic : Cranial nerve II to XII intact. No focal neurological deficits. Psychiatric : alert & oriented x 3. Matching mood & appropriate affect. Judgment & insight intact. Musculoskeletal : Cervical Spine Motor strength in the deltoid and biceps: Normal right side. Normal Left side Motor strength biceps and the wrist extensors: Normal right side . Normal left side Motor strength in the triceps muscle: Normal right side. Normal left side Deep tendon reflexes: Normal at the biceps. Normal at Brachioradialis. Normal at triceps Vertebral body tenderness to deep palpation Cervical facet loading test: positive bilaterally C2-C3, C3-C4 Spurling test: positive bilaterally Neck distraction test: positive bilaterally Jenny sign: positive bilaterally Lumbar spine Motor strength lower extremities ,thigh and legs 5/5 Right side , 5/5 Left side Deep tendon reflexes : Normal Knee Jerk. Normal Ankle Jerk Vertebral body tenderness Sánchez Test positive Lumbar facet Loading Test: positive Right / positive Left Range of motion of the lumbar spine Flexion 30 degrees, extension 10 degrees Straight Leg Raise test: Left/ Right positive at degrees Kavita test: positive right / positive left. Severe tenderness over the Sacroiliac joint on the Right / Left sides Gaenslen test: positive bilaterally Seated flexion test: positive bilaterally. Sacral spine : Severe tenderness over the Sacroiliac joint: right side / left side Range of motion: Flexion of the lumbar spine <60 degrees Range of motion: Extension of the lumbar spine <20 degrees Gaenslen's Test positive Kavita test: positive right side / left side Thigh Thrust Test Sacral Thrust Test Imaging: MRI noncontrast of the cervical spine from 04/15/2024 reviewed Assessment/ Plan : C3-C4 disc bulge, Cervical DDD Recommendation of BL MBB C2-C3, C3-C4 #2. May need a series of injections, up until RFA, for optimal pain relief. Risks, benefits of procedure discussed and patient verbalized understanding. Admits to anti- coagulant use or medical history of diabetes. Protocol for discontinuation/ continuation of medications fan procedure discussed. Minimal anesthesia provided, if clinically indicated, consisting of Versed and Fentanyl. All questions answered. I have spent greater than 30 minutes on patient care today. Dr Wise was available by phone for the evaluation of this patient. The time was used to review the medical records including relevant urine studies and Prescription history (MAPs), review of the available imaging, evaluation and examination of the patient, coordination of care with the medical staff and if applicable referring physicians, as well as creation of the medical record PQRS Narrative: Smoking Status Former smoker Hx Alcohol Use (MH) No Home Medications: Ambulatory Orders Metoprolol Succinate (ER) [Toprol XL] 100 mg PO DAILY 06/14/19 Milk Thistle 150 mg PO DAILY 06/14/19 Multivitamins, Thera [Multivitamin (formulary)] 1 tab PO DAILY 06/14/19 [place]-3 Fatty Acids/Fish Oil [Fish Oil 1,000 mg Softgel] 1 cap PO DAILY 06/14/19 Ergocalciferol [Vitamin D2 (1250 Mcg = 05606 Iu)] 1,250 mcg PO WEEKLY 02/05/21 Percocet(Unknown Dose) 1 tab PO QID 02/05/21 Pravastatin Sodium [Pravachol] 40 mg PO HS 02/05/21 lisinopriL [Zestril] 40 mg PO BID 02/05/21 Aspirin 325 mg PO BID #60 tab 02/12/21 Celecoxib [CeleBREX] 200 mg PO DAILY 5 Days #5 capsule 02/12/21 HYDROcodone/APAP 7.5-325MG [[place] 7.5-325] 1 - 2 tab PO Q6H PRN #24 tab 02/12/21 Ondansetron Odt [Zofran Odt] 1 tab PO Q8HR PRN #10 tab 02/12/21 Sennosides [Senokot] 2 tab PO DAILY PRN #60 tablet 02/12/21 diazePAM [Valium] 5 mg PO DAILY PRN 1 Days #2 tab 07/27/24 Controlled Substance Measures - Controlled Substance Measures Is patient prescribed a controlled substance at discharge?: Yes When asked, does pt state using other controlled substances?: Yes If prescribed controlled substance>3 days was MAPS reviewed?: Prescribed <3 Days
== END ==
LOC: PNWHC3 14:07
PROVIDERS: ATTEND Specialist
DX: M47.812 Spondylosis without myelopathy or radiculopathy, cervical region
CPT/HCPCS: 99211

== ENCOUNTER 2024-08-30 07:42 | Day surgery (SDC) | payer BC ==
[2024-08-29 09:00] VITALS: BMI 34.4
[2024-08-30 08:09] VITALS: RESP 16; TEMP 97
[2024-08-30] MEDS: IV FLUID CONTINUATION 1,000 ML IV ONE (08:13)
[2024-08-30] MEDS: LACTATED RINGERS 1,000 ML IV SCH (08:13)
[2024-08-30] MEDS ORDERED: fentaNYL (PF) 50 MCG/ML 2 ML AMP ONE (08:55)
[2024-08-30] MEDS ORDERED: MIDAZOLAM 2 MG/2 ML VIAL ONE (08:55)
[2024-08-30] MEDS ORDERED: ROPIVACAINE 5MG/ML 20ML VIAL ONE (08:55)
[2024-08-30] MEDS ORDERED: hydrALAZINE HCL 20 MG/ML 1 ML VIAL ONE (08:55)
--- NOTE | 2024-08-30 09:20 | P.PCN ---
Date of Procedure: 08/30/24 Procedure(s) Performed: PREOPERATIVE DIAGNOSIS: 1-Cervical Spondylosis with Facet Arthropathy.without myelopathy. 2-cervical degenerative disc disease POSTOPERATIVE DIAGNOSIS:1-cervical spondylosis with facet arthropathy without myelopathy. 2-cervical degenerative disc disease PROCEDURES: Diagnostic bilateral C2 , C3, C4 medial branch blocks, with fluoroscopic guidance (fluoroscopy images available in radiology department ) ( to target the facet joint at bilateral C2-3 , C3-4 ) ANESTHESIA: moderate sedation with Versed 2 mg , and fentanyl 100 micrograms (patient started at 08:55,ended at 09:15 ) EBL: Minimal PROCEDURE INDICATION: The patient with neck pain secondary to cervical arthropathy unresponsive to more conservative treatments. PROCEDURE DESCRIPTION / TECHNIQUE: The patient was seen and identified in the preoperative area. Risks, benefits, complications, and alternatives were discussed with the patient, the patient agreed to proceed with the procedure and signed the consent. IV was started. Vital signs remained stable throughout the procedure. Patient was taken to the OR and time out was completed. The patient was placed in the prone position on the procedure table. A pillow was placed under the patients chest to increase the cervical interlaminar space. The cervical area was prepped and draped in the usual sterile fashion. Critical pause was taken. Vital signs were closely monitored during the procedure. Conscious sedation was used during the procedure to decrease patients anxiety. Using cross-table lateral fluoroscopy, the centroid of the trapezoid of right C2 ,C3, C4 was identified, marked, and localized with 1% lidocaine 1 ml at each level for skin and Sub Q infiltrations . Subsequently, a 22 G 3 spinal needle was advanced guided by fluoroscopy to the centroid of the trapezoid of Right C3, C4 , . [place] tip position was confirmed at the centroid of the trapezoids of Right C2 ,C3 , C4 with anteroposterior fluoroscopy. Subsequently, 1.5 ml of preservative-free Ropivacaine 0.5% and half ml of the was injected after negative aspiration for blood and CSF. [place] was then removed intact the same procedure was repeated at the left C2 ,C3 , C4 levels. COMPLICATIONS: No acute complications. DISPOSITION / PLANS: The patient was placed in a supine position and transferred to the recovery area in a stable condition for observation and was discharged from the recovery room after meeting discharge criteria. Home discharge instructions given to the patient by the staff. The patient was reexamined prior to discharge. The patient will schedule a follow up in the clinic in 2-4 weeks.
[2024-08-30] MEDS: IV FLUID CONTINUATION 800 ML IV ONE (09:25)
[2024-08-30 09:28] VITALS: PULSE 52
--- NOTE | 2024-08-30 09:28 | FL ---
EXAMINATION TYPE: FL guided pain mgmt statistic DATE OF EXAM: 08/30/2024 FLUOROSCOPY cerv vanita cerv facet block fl time 42.2 secs dap 0.20029 [facility], , 08/30/2024 9:25 AM
[2024-08-30 09:37] VITALS: BP 154/77
== END 2024-08-30 10:00 | disposition home or self-care (01) ==
LOC: ORPAIN 07:42
PROVIDERS: ATTEND Specialist
DX: M47.812 Spondylosis without myelopathy or radiculopathy, cervical region
CPT/HCPCS: 99152

== ENCOUNTER → 2024-09-21 | Outpatient (CLI) | payer BC ==
[2024-09-21 14:45] VITALS: BP 146/74; PULSE 66; RESP 16
--- NOTE | 2024-09-21 15:46 | P.PAINPG ---
PQRS Measure Charge Sheet Comment: HISTORY OF PRESENT ILLNESS: A 58 yr old male w at side presents today w severe and chronic neck pain secondary to radiculopathy, spondylosis and facet arthropathy without myelopathy for evaluation s/p BL MBB C2-C3, C3-C4 #2. Pt states he experienced 80 % pain relief x 4 hrs s/p procedure. Pt states pain level is provoked at 7 /10 in intensity, constant, localized in the cervical spine, predominantly axial, throbbing in character w occasional shooting pain towards the head, R> L. Pain is provoked by rotation. Pain is alleviated by physician guided home exercises every other day since Feb 2024, heat, medications, topical, repositioning and rest . Interventional procedures include BL MBB C2-C4 x2 Medications include Percocet 7.5/325mg #120, Tyl, [place], Hx ETOH abuse REVIEW OF ORGAN SYSTEMS: CONSTITUTIONAL: No fevers or chills. No recent weight loss. NEUROLOGICAL: + numbness and tingling along the distal extremities. No seizure disorders or headaches. MUSCULOSKELETAL: + pain PSYCHIATRIC: Denies current depression or suicidal thoughts. Physical Examinations : Constitutional : Cooperative , not in acute distress . Neurologic : Cranial nerve II to XII intact. No focal neurological deficits. Psychiatric : alert & oriented x 3. Matching mood & appropriate affect. Judgment & insight intact. Musculoskeletal : Cervical Spine Motor strength in the deltoid and biceps: Normal right side. Normal Left side Motor strength biceps and the wrist extensors: Normal right side . Normal left side Motor strength in the triceps muscle: Normal right side. Normal left side Deep tendon reflexes: Normal at the biceps. Normal at Brachioradialis. Normal at triceps Vertebral body tenderness to deep palpation Cervical facet loading test: positive bilaterally C2-C3, C3-C4 Spurling test: positive bilaterally Neck distraction test: positive bilaterally Jenny sign: positive bilaterally Lumbar spine Motor strength lower extremities ,thigh and legs 5/5 Right side , 5/5 Left side Deep tendon reflexes : Normal Knee Jerk. Normal Ankle Jerk Vertebral body tenderness Sánchez Test positive Lumbar facet Loading Test: positive Right / positive Left Range of motion of the lumbar spine Flexion 30 degrees, extension 10 degrees Straight Leg Raise test: Left/ Right positive at degrees Kavita test: positive right / positive left. Severe tenderness over the Sacroiliac joint on the Right / Left sides Gaenslen test: positive bilaterally Seated flexion test: positive bilaterally. Sacral spine : Severe tenderness over the Sacroiliac joint: right side / left side Range of motion: Flexion of the lumbar spine <60 degrees Range of motion: Extension of the lumbar spine <20 degrees Gaenslen's Test positive Kavita test: positive right side / left side Thigh Thrust Test Sacral Thrust Test Imaging: MRI non contrast of the cervical spine from 04/15/2024 reviewed Assessment/ Plan : C3-C4 disc bulge, Cervical radiculopathy Recommendation of BL RFA C2-C3, C3-C4. Risks, benefits of procedure discussed and patient verbalized understanding. Admits to anti- coagulant use or medical history of diabetes. Protocol for discontinuation/ continuation of medications fan procedure discussed. Minimal anesthesia provided, if clinically indicated, consisting of Versed and Fentanyl. All questions answered. I have spent greater than 30 minutes on patient care today. Dr Wise was available by phone for the evaluation of this patient. The time was used to review the medical records including relevant urine studies and Prescription history (MAPs), review of the available imaging, evaluation and examination of the patient, coordination of care with the medical staff and if applicable referring physicians, as well as creation of the medical record - Pain Location Neck Non-Pharmacological Interventions: Heat Pharmacological Interventions: Epidural, Topical Medication PQRS Narrative: Smoking Status Former smoker Hx Alcohol Use (MH) No Home Medications: Ambulatory Orders Metoprolol Succinate (ER) [Toprol XL] 100 mg PO DAILY 06/14/19 Milk Thistle 150 mg PO DAILY 06/14/19 Multivitamins, Thera [Multivitamin (formulary)] 1 tab PO DAILY 06/14/19 [place]-3 Fatty Acids/Fish Oil [Fish Oil 1,000 mg Softgel] 1 cap PO DAILY 06/14/19 Ergocalciferol [Vitamin D2 (1250 Mcg = 95935 Iu)] 1,250 mcg PO WEEKLY 02/05/21 Percocet(Unknown Dose) 750 mg PO QID 02/05/21 Pravastatin Sodium [Pravachol] 40 mg PO HS 02/05/21 lisinopriL [Zestril] 40 mg PO BID 02/05/21 diazePAM [Valium] 5 mg PO DAILY PRN 1 Days #2 tab 09/21/24 Controlled Substance Measures - Controlled Substance Measures Is patient prescribed a controlled substance at discharge?: No
== END ==
LOC: PNWHC3 13:57
PROVIDERS: ATTEND Specialist
CPT/HCPCS: 99211

== ENCOUNTER 2024-11-08 07:35 | Day surgery (SDC) | payer BC ==
[2024-11-08] MEDS: IV FLUID CONTINUATION 1,000 ML IV ONE ×2 (07:55→09:34)
[2024-11-08] MEDS ORDERED: LACTATED RINGERS 1,000 ML IV SCH (08:02)
[2024-11-08 08:06] VITALS: RESP 16; TEMP 97.3
[2024-11-08] MEDS ORDERED: methylPREDNISolone ACETATE 40 MG/ML 1 ML VIAL ONE (09:10)
[2024-11-08] MEDS ORDERED: ROPIVACAINE 5MG/ML 20ML VIAL ONE (09:10)
[2024-11-08] MEDS ORDERED: fentaNYL (PF) 50 MCG/ML 2 ML AMP ONE (09:10)
[2024-11-08] MEDS ORDERED: MIDAZOLAM 2 MG/2 ML VIAL ONE (09:10)
--- NOTE | 2024-11-08 09:29 | P.PCN ---
Date of Procedure: 11/08/24 Procedure(s) Performed: PREOPERATIVE DIAGNOSIS: Cervical spondylosis with Facet Arthropathy without myelopathy. POSTOPERATIVE DIAGNOSIS: Cervical spondylosis with Facet Arthropathy without myelopathy. PROCEDURES: Radiofrequency thermocoagulation Left C2 , C3, C4 medial branch with Fluroscopy [place](fluoroscopy was available in Radiology department ) (to denervate the facet joint at Left C2-3 ,C3- 4 ) ANESTHESIA: moderate sedation with fentanyl 100 micrograms and Versed 1 mg (sedation start time 09:10,end time 09:25 ) EBL: Minimal PROCEDURE INDICATION: The patient with neck pain secondary to cervical arthropathy who had more than 50% relief of her pain with previous diagnostic cervical medial branch block. PROCEDURE DESCRIPTION / TECHNIQUE: The patient was seen and identified in the preoperative area. Risks, benefits, complications, and alternatives were d iscussed with the patient, the patient agreed to proceed with the procedure and signed the consent. IV was started. Vital signs remained stable throughout the procedure. Patient was taken to the OR and time out was completed. The patient was placed in the prone position on the procedure table. A pillow was placed under the patients chest to increase the cervical interlaminar space. The cervical area was prepped and draped in the usual sterile fashion. Critical pause was taken. Vital signs were closely monitored during the procedure. Conscious sedation was used during the procedure to decrease patients anxiety. Using cross-table lateral fluoroscopy, the centroid of the trapezoid of Left C2 ,C3, C4 were identified, marked, and localized with 1% lidocaine. Subsequently, a 20 -pq radiofrequency cannula with a 10-mm active tip was advanced guided by fluoroscopy to the centroid of the trapezoid of Left C2 ,C3, C4. Needle tip position was confirmed at the centroid of the trapezoids of Left C2 ,C3, C4 with anteroposterior fluoroscopy. Each site then underwent sensory testing at 50 Hz and 0 to 1 volt and motor testing at 2 Hz and 0 to 3 volt with local stimulation, but no radicular symptoms down the arm. Thereafter each sites underwent radiofrequency thermocoagulation at 80 degrees celsius for 90 seconds after injecting 0.5 ml of PF Ropivacaine 0.5 %. After thermocoagulation, 1 ml of the block solution containing Depo-Medrol 40 mg and 3 mL of preservative-free normal saline was injected at the left C2 ,C3, C4, levels after negative aspiration of CSF and blood and with no paresthesias. Cannulas were retracted while injecting lidocaine 1% until the needle is out. Skin was cleansed and bandages were applied. COMPLICATIONS: No acute complications. DISPOSITION / PLANS: The patient was placed in a supine position and transferred to the recovery area in a stable condition for observation and was discharged from the recovery room after meeting discharge criteria. Home discharge instructions given to the patient by the staff. The patient was reexamined prior to discharge. The patient will schedule a follow up in the clinic in 2 weeks.
[2024-11-08 09:38] VITALS: BP 144/89; PULSE 56
--- NOTE | 2024-11-08 09:42 | FL ---
Intraoperative/procedural fluoroscopic services were provided for RF cervical pain management. Total fluoroscopy time is 17.9 seconds with a total of 3 submitted images to PACS. Total DAP 0.74333 mGym2. Please see the operative note for further details. [facility], , 11/08/2024 9:40 AM
== END 2024-11-08 10:11 | disposition home or self-care (01) ==
LOC: ORPAIN 07:35
PROVIDERS: ATTEND Specialist
DX: M47.812 Spondylosis without myelopathy or radiculopathy, cervical region (principal)
CPT/HCPCS: 64633; 64634; J2250; J3010; J2795; J1010; 99152

== ENCOUNTER 2024-11-18 06:38 | Day surgery (SDC) | payer BC ==
[2024-11-17 12:40] VITALS: BMI 34.0
[2024-11-18 07:23] VITALS: TEMP 97.3
[2024-11-18] MEDS: IV FLUID CONTINUATION 1,000 ML IV ONE (07:28)
[2024-11-18] MEDS: LACTATED RINGERS 1,000 ML IV SCH (07:43)
[2024-11-18] MEDS ORDERED: ROPIVACAINE 5MG/ML 20ML VIAL ONE (08:13)
[2024-11-18] MEDS ORDERED: methylPREDNISolone ACETATE 40 MG/ML 1 ML VIAL ONE (08:13)
[2024-11-18] MEDS ORDERED: fentaNYL (PF) 50 MCG/ML 2 ML AMP ONE (08:13)
[2024-11-18] MEDS ORDERED: MIDAZOLAM 2 MG/2 ML VIAL ONE (08:13)
[2024-11-18] MEDS: IV FLUID CONTINUATION 700 ML IV ONE (08:35)
--- NOTE | 2024-11-18 08:44 | FL ---
EXAMINATION TYPE: FL guided pain mgmt statistic DATE OF EXAM: 11/18/2024 HISTORY: Fluoroscopy time Total dose area product (DAP) in uGy*m?, mGy*cm? (or similar): 0.49994 IMPRESSION: 1. Fluoroscopy time. [facility], , 11/18/2024 8:41 AM
[2024-11-18 08:50] VITALS: PULSE 49; RESP 16
--- NOTE | 2024-11-18 08:53 | P.PCN ---
Date of Procedure: 11/18/24 Procedure(s) Performed: PREOPERATIVE DIAGNOSIS: Cervical spondylosis with Facet Arthropathy without myelopathy. POSTOPERATIVE DIAGNOSIS: Cervical spondylosis with Facet Arthropathy without myelopathy. PROCEDURES: Radiofrequency thermocoagulation Right C2 , C3, C4 medial branch with Fluroscopy Guidence(fluoroscopy was available in Radiology department ) (to denervate the facet joint at Right C2-3 ,C3- 4 ) ANESTHESIA: moderate sedation with fentanyl 100 micrograms and Versed 1 mg (sedation start time 08:13,end time 08:29 ) EBL: Minimal PROCEDURE INDICATION: The patient with neck pain secondary to cervical arthropathy who had more than 50% relief of her pain with previous diagnostic cervical medial branch block. PROCEDURE DESCRIPTION / TECHNIQUE: The patient was seen and identified in the preoperative area. Risks, benefits, complications, and alternatives were discussed with the patient, the patient agreed to proceed with the procedure and signed the consent. IV was started. Vital signs remained stable throughout the procedure. Patient was taken to the OR and time out was completed. The patient was placed in the prone position on the procedure table. A pillow was placed under the patients chest to increase the cervical interlaminar space. The cervical area was prepped and draped in the usual sterile fashion. Critical pause was taken. Vital signs were closely monitored during the procedure. Conscious sedation was used during the procedure to decrease patients anxiety. Using cross-table lateral fluoroscopy, the centroid of the trapezoid of right C2 ,C3, C4 were identified, marked, and localized with 1% lidocaine. Subsequently, a 20 -cx radiofrequency cannula with a 10-mm active tip was advanced guided by fluoroscopy to the centroid of the trapezoid of right C2 ,C3, C4. Needle tip position was confirmed at the centroid of the trapezoids of right C2 ,C3, C4 with anteroposterior fluoroscopy. Each site then underwent sensory testing at 50 Hz and 0 to 1 volt and motor testing at 2 Hz and 0 to 3 volt with local stimulation, but no radicular symptoms down the arm. Thereafter each sites underwent radiofrequency thermocoagulation at 80 degrees celsius for 90 seconds after injecting 0.5 ml of PF Ropivacaine 0.5 %. After thermocoagulation, 1 ml of the block solution containing Depo-Medrol 40 mg and 3 mL of preservative-free normal saline was injected at the right C2 ,C3, C4, levels after negative aspiration of CSF and blood and with no paresthesias. Cannulas were retracted while injecting lidocaine 1% until the needle is out. Skin was cleansed and bandages were applied. COMPLICATIONS: No acute complications. DISPOSITION / PLANS: The patient was placed in a supine position and transferred to the recovery area in a stable condition for observation and was discharged from the recovery room after meeting discharge criteria. Home discharge instructions given to the patient by the staff. The patient was reexamined prior to discharge. The patient will schedule a follow up in the clinic in 2 weeks.
[2024-11-18 09:01] VITALS: BP 119/74
== END 2024-11-18 09:07 | disposition home or self-care (01) ==
LOC: ORPAIN 06:38
PROVIDERS: ATTEND Specialist
DX: M47.812 Spondylosis without myelopathy or radiculopathy, cervical region (principal)
CPT/HCPCS: 64633; 64634; J2250; J3010; J2795; J1010; 99152